=== PATIENT | male | born 1980 | race Two or more races ===

== ENCOUNTER 2020-11-04 13:55 | Inpatient (IN) | payer MEDICAID ==
[~2020-11-04] VITALS: Ht 172.7 cm; Wt 77.1 kg
[2020-11-04] MEDS ORDERED: Morphine Sulfate 4mg/ml Inj (IV USE ONLY) IVP ONE ×3 (14:00→20:30)
--- NOTE | 2020-11-04 14:00 | NUR ---
ED Nurse Note: patient from street and brought in by RA 813 due to right leg deformity and injury. Per EMS, patient was playing soccer and he fell and landed on his right leg. Pt is AOx4, appears to be restless, (+) facial grimace, cooperative to care, VSS, on RA, afebilr on triage.
--- NOTE | 2020-11-04 14:31 | Emergency Room Report ---
History of Present Illness General Chief Complaint: Lower Extremity Injury Present Illness HPI Disclaimer: Please note that this report is being documented using [employer] technology. This can lead to erroneous entry secondary to incorrect interpretation by the dictating instrument. HPI: 40-year-old male presents with right lower extremity pain. He was playing soccer in the street when he tripped and landed improperly on his foot, now complaining of right lower extremity pain that is about 10 out of 10 worse with movement. Obvious deformity noted by EMS. Patient presented in a splint. He denies any past medical history. He does admit to drinking alcohol today. Allergies: Coded Allergies: No Known Allergies (Unverified , 11/04/20) COVID-19 Screening Contact w/high risk pt: No Experienced COVID-19 symptoms?: No COVID-19 Testing performed RN GASTROENTEROLOGY: No Patient History Reviewed Nursing Documentation: PMH: Agreed; PSxH: Agreed Review of Systems All Other Systems: negative except mentioned in HPI Physical Exam Vital Signs Date Time Temp Pulse Resp B/P (MAP) Pulse Ox O2 Delivery O2 Flow Rate FiO2 11/04/20 13:47 98.2 94 16 161/84 (109) 98 Room Air Sp02 EP Interpretation: reviewed, normal General Appearance: well appearing, no apparent distress Head: normocephalic, atraumatic Eyes: bilateral eye PERRL, bilateral eye EOMI ENT: hearing grossly normal, moist mucus membranes Neck: full range of motion, supple Respiratory: lungs clear, normal breath sounds, no rhonchi, no respiratory distress, no retraction, no wheezing Cardiovascular #1: normal peripheral pulses, regular rate, rhythm, no murmur Gastrointestinal: non tender, soft, non-distended, no guarding Musculoskeletal: other - Right lower extremity deformity noted superior to the ankle, 2+ pulses sensation intact in the right foot, motor intact Neurologic: alert, oriented x3, no focal defects Skin: normal color, warm/dry Procedures Splinting Splinting : Consent: Verbal Hand-Made Type: plaster Splint: posterior long Pre-Proc Neuro Vasc Exam: normal Post-Proc Neuro Vasc Exam: normal Patient Tolerated: Well Complications: None Medical Decision Making Diagnostic Impression: Primary Impression: Closed fracture of right tibia and fibula Additional Impression: Alcohol intoxication ER Course MDM: Differential included fracture, dislocation, sprain to name a few Clinical ciaads-w-bgh demonstrated fracture of the right tibia and fibula. IV was inserted, pain control given. Preop laboratory studies were sent and COVID- 19 testing was negative. Case was discussed with orthopedics, Dr. Anne who will take patient to the OR tomorrow. She will be admitted to the medical floor under Dr. New. Patient splinted by me while in the ER. Labs - Laboratory Tests Test 11/04/20 14:19 White Blood Count 7.2 K/UL (4.8-10.8) Red Blood Count 3.83 M/UL (4.70-6.10) L Hemoglobin 12.3 G/DL (14.2-18.0) L Hematocrit 38.4 % (42.0-52.0) L Mean Corpuscular Volume 100 FL (80-99) H Mean Corpuscular Hemoglobin 32.2 PG (27.0-31.0) H Mean Corpuscular Hemoglobin Concent 32.1 G/DL (32.0-36.0) Red Cell Distribution Width 12.6 % (11.6-14.8) Platelet Count 332 K/UL (150-450) Mean Platelet Volume 5.4 FL (6.5-10.1) L Neutrophils (%) (Auto) 66.3 % (45.0-75.0) Lymphocytes (%) (Auto) 20.1 % (20.0-45.0) Monocytes (%) (Auto) 8.2 % (1.0-10.0) Eosinophils (%) (Auto) 4.4 % (0.0-3.0) H Basophils (%) (Auto) 1.0 % (0.0-2.0) Prothrombin Time 10.3 SEC (9.30-11.50) Prothrombin Time INR 0.9 (0.9-1.1) Activated Partial Thromboplast Time 23 SEC (23-33) Sodium Level 139 MMOL/L (136-145) Potassium Level 3.6 MMOL/L (3.5-5.1) Chloride Level 103 MMOL/L (98-107) Carbon Dioxide Level 24 MMOL/L (21-32) Anion Gap 12 mmol/L (5-15) Blood Urea Nitrogen 12 mg/dL (7-18) Creatinine 1.0 MG/DL (0.55-1.30) Estimated Glomerular Filtration Rate > 60 mL/min (>60) Glucose Level 96 MG/DL (74-106) Calcium Level 8.5 MG/DL (8.5-10.1) Total Bilirubin 0.2 MG/DL (0.2-1.0) Aspartate Amino Transferase (AST) 45 U/L (15-37) H Alanine Aminotransferase (ALT) 43 U/L (12-78) Alkaline Phosphatase 137 U/L (46-116) H Total Protein 6.9 G/DL (6.4-8.2) Albumin 3.4 G/DL (3.4-5.0) Globulin 3.5 g/dL Albumin/Globulin Ratio 1.0 (1.0-2.7) Serum Alcohol 184 mg/dL Microbiology Date/Time Source Procedure Growth Status 11/04/20 16:00 Nasopharynx SARS-CoV-2 RdRp Gene Assay - Final Complete On reevaluation: Pain controlled patient resting comfortably Plan-admission to the medical floor, orthopedics consultation Last Vital Signs Date Time Temp Pulse Resp B/P (MAP) Pulse Ox O2 Delivery O2 Flow Rate FiO2 11/04/20 13:47 98.2 94 16 161/84 (109) 98 Room Air Status: improved Disposition: ADMITTED INPATIENT Condition: Serious Elan Barrett M.D. Nov 04, 2020 14:31
[2020-11-04 14:42] LABS: EOSINOPHILS % (AUTO) 4.4 % (0.0-3.0); HEMATOCRIT 38.4 % (42.0-52.0); HEMOGLOBIN 12.3 G/DL (14.2-18.0); LYMPHOCYTES % (AUTO) 20.1 % (20.0-45.0); MEAN CORPUSCULAR VOLUME 100 FL (80-99); MONOCYTES % (AUTO) 8.2 % (1.0-10.0); NEUTROPHILS % (AUTO) 66.3 % (45.0-75.0); PLATELET COUNT 332 K/UL (150-450); RED BLOOD COUNT 3.83 M/UL (4.70-6.10); RED CELL DISTRIBUTION WIDTH 12.6 % (11.6-14.8); WHITE BLOOD COUNT 7.2 K/UL (4.8-10.8)
[2020-11-04 14:52] LABS: INR 0.9 (0.9-1.1)
[2020-11-04 14:59] LABS: ANION GAP 12 mmol/L (5-15); BLOOD UREA NITROGEN 12 mg/dL (7-18); CALCIUM 8.5 MG/DL (8.5-10.1); CARBON DIOXIDE 24 MMOL/L (21-32); CHLORIDE 103 MMOL/L (98-107); POTASSIUM 3.6 MMOL/L (3.5-5.1); SODIUM 139 MMOL/L (136-145)
[2020-11-04 15:04] LABS: ALANINE AMINOTRANSFERASE 43 U/L (12-78); ALBUMIN 3.4 G/DL (3.4-5.0); ALKALINE PHOSPHATASE 137 U/L (46-116); ASPARTATE AMINO TRANSFERASE 45 U/L (15-37); BILIRUBIN,TOTAL 0.2 MG/DL (0.2-1.0)
--- NOTE | 2020-11-04 16:00 | NUR ---
ED Nurse Note: R long posterior splint applied by TREVOR and RN.
--- NOTE | 2020-11-04 16:51 | Diagnostic Imaging Report ---
Indication: Right leg pain Technique: 2 views of the left tibia and fibula Comparison: none Findings: There is a spiral fracture of the distal tibial diaphysis. This is displaced laterally by one bone width, very slightly impacted. A few tiny intervening fracture fragments are demonstrated. There is also a spiral fracture of the proximal fibular diaphysis, likewise displaced by one bone width. Surgical hardware is seen in the distal femur Impression: Positive for tibial and fibular fractures, as described
--- NOTE | 2020-11-04 17:38 | History & Physical ---
History of Present Illness General Reason for Hospitalization: Lower Extremity Injury Present Illness HPI HPI: 40-year-old male presents with right lower extremity pain. He was playing soccer in the street when he tripped and landed improperly on his foot, now complaining of right lower extremity pain that is about 10 out of 10 worse with movement. Obvious deformity noted by EMS. Patient presented in a splint. He denies any past medical history. He does admit to drinking alcohol today. Allergies: Coded Allergies: No Known Allergies (Unverified , 11/04/20) COVID-19 Screening Contact w/high risk pt: No Experienced COVID-19 symptoms?: No Medication History No Active Prescriptions or Reported Meds Patient History Healthcare decision maker Resuscitation status Advanced Directive on File Review of Systems Review of Symptoms General ROS: no weight loss or fever Psychological ROS: no depression or mood changes, no memory loss Ophthalmic ROS: no visual changes or eye irritation ENT ROS: no nasal congestion, hearing loss, dizziness Allergy and Immunology ROS: no allergic symptoms or urticaria Hematological and Lymphatic ROS: no swollen glands, unusual bleeding or bruising Endocrine ROS: no polyuria, polydipsia, weight changes, temperature intolerance Respiratory ROS: no cough, shortness of breath, or wheezing Cardiovascular ROS: no chest pain or dyspnea on exertion Gastrointestinal ROS: denies abdominal pain, bright red blood in stool. Musculoskeletal ROS: LE pain Neurological ROS: no TIA or stroke symptoms Dermatological ROS: no new or changing skin lesions, rashes or pruritis Physical Exam Physical Exam General appearance: alert, cooperative, no distress, appears stated age Head: Normocephalic, without obvious abnormality, atraumatic Eyes: conjunctivae/corneas clear. PERRL, EOM's intact. Fundi benign Throat: Lips, mucosa, and tongue normal. Teeth and gums normal Neck: supple, symmetrical, trachea midline, no adenopathy, thyroid: not enlarged, symmetric, no tenderness/mass/nodules, no carotid bruit and no JVD Lungs: clear to auscultation bilaterally Heart: regular rate and rhythm, S1, S2 normal, no murmur, click, rub or gallop Abdomen: soft, non-tender. Bowel sounds normal. No masses, no organomegaly Pulses: 2+ and symmetric Skin: Skin color, texture, turgor normal. No rashes or lesions Neurologic: Grossly normal Last 24 Hour Vital Signs Date Time Temp Pulse Resp B/P (MAP) Pulse Ox O2 Delivery O2 Flow Rate FiO2 11/04/20 14:52 98.2 11/04/20 13:47 98.2 94 16 161/84 (109) 98 Room Air Laboratory Tests Test 11/04/20 14:19 White Blood Count 7.2 K/UL (4.8-10.8) Red Blood Count 3.83 M/UL (4.70-6.10) L Hemoglobin 12.3 G/DL (14.2-18.0) L Hematocrit 38.4 % (42.0-52.0) L Mean Corpuscular Volume 100 FL (80-99) H Mean Corpuscular Hemoglobin 32.2 PG (27.0-31.0) H Mean Corpuscular Hemoglobin Concent 32.1 G/DL (32.0-36.0) Red Cell Distribution Width 12.6 % (11.6-14.8) Platelet Count 332 K/UL (150-450) Mean Platelet Volume 5.4 FL (6.5-10.1) L Neutrophils (%) (Auto) 66.3 % (45.0-75.0) Lymphocytes (%) (Auto) 20.1 % (20.0-45.0) Monocytes (%) (Auto) 8.2 % (1.0-10.0) Eosinophils (%) (Auto) 4.4 % (0.0-3.0) H Basophils (%) (Auto) 1.0 % (0.0-2.0) Prothrombin Time 10.3 SEC (9.30-11.50) Prothromb Time International Ratio 0.9 (0.9-1.1) Activated Partial Thromboplast Time 23 SEC (23-33) Sodium Level 139 MMOL/L (136-145) Potassium Level 3.6 MMOL/L (3.5-5.1) Chloride Level 103 MMOL/L (98-107) Carbon Dioxide Level 24 MMOL/L (21-32) Anion Gap 12 mmol/L (5-15) Blood Urea Nitrogen 12 mg/dL (7-18) Creatinine 1.0 MG/DL (0.55-1.30) Estimat Glomerular Filtration Rate > 60 mL/min (>60) Glucose Level 96 MG/DL (74-106) Calcium Level 8.5 MG/DL (8.5-10.1) Total Bilirubin 0.2 MG/DL (0.2-1.0) Aspartate Amino Transf (AST/SGOT) 45 U/L (15-37) H Alanine Aminotransferase (ALT/SGPT) 43 U/L (12-78) Alkaline Phosphatase 137 U/L (46-116) H Total Protein 6.9 G/DL (6.4-8.2) Albumin 3.4 G/DL (3.4-5.0) Globulin 3.5 g/dL Albumin/Globulin Ratio 1.0 (1.0-2.7) Serum Alcohol 184 mg/dL Microbiology Date/Time Source Procedure Growth Status 11/04/20 16:00 Nasopharynx SARS-CoV-2 RdRp Gene Assay - Final Complete Height (Feet): 5 Height (Inches): 8.00 Weight (Pounds): 170 Assessment/Plan Diagnosis [place] I: #Right displaced spiral fracture of the distal tibia requiring surgery. - plan for surgerty - pain control - DVT ppx - PT [facility] Hospital declaration I spent 70 minutes on this patient's case, and 35 minutes was dedicated to counseling and/or care coordination. MIPS (Merit-based Incentive Payment System) Applicable CPT: 73796, 74779 CHECK ALL THAT ARE MET: Measure #5 (CHF): All ages. Prescribe JUDY/ARB upon discharge for patients with left ventricular systolic dysfunction. If not, the reason is clearly documented in the medical chart. Measure #8 (CHF): All ages. Prescribe a beta jamari upon discharge for patients with left ventricular systolic dysfunction. If not, the reason is clearly documented in the medical chart. Measure #47 Advance care plan or surrogate decision maker documented in the medical record. Measure #130 The provider has documented, updated, or reviewed the patients current medication list and has documented it in the patients note. Measure #374 (All): Send report to referring provider. Measure #407(Sepsis due to MSSA bacteremia): Age 18+ Patient treated with a beta-lactam antibiotic (Nafcillin, Oxacillin or Cefazolin) as definitive therapy. MEDICAL COMPLEXITY High complexity medical decision making (need 2/3 categories) Problem - need 4 points Acute/new problem with new plan for workup (4 points, 1 max) Acute/new problem without additional workup (3 points, 1 max) Unstable chronic problem actively being managed (2 point each, 2 max) Stable chronic problem actively being managed (1 point each, 2 max) Self-limited/transient process (constipation, muscle ache, etc) (1 point each, 2 max) Data - need 4 points Reviewed labs/imaging studies (1 points, 2 max) Independent review of imaging (EKG, xrays, etc) (2 points, 2 max) Discussed case with consult/other MD/RN (2 points, 2 max) High Risk - qualify if have one of the following: Severe exacerbation of acute problem, acute mental status change, IV narcotics, monitoring drug levels (vancomycin, INR, tacrolimus etc) Ran New M.D. Nov 04, 2020 17:38
--- NOTE | 2020-11-04 19:15 | NUR ---
ED Nurse Note: Recieved report from am nurse to resume care, pt in bed awake and alert, placed pt on monitoring for v/s, pt is swazi speaking but can make needs known and understands norwegian, pt c/o severe pain to right leg, leg is splinted , placed pillow and elevated extremity, cap refill less than 3 sec noted in toes, MD informed of pt pain, will re-medicate and continue to closely montior, pt is waiting for room for admission. pt has patent saline lock in left ac area.
[2020-11-04 19:20] VITALS: BP 109/58
--- NOTE | 2020-11-04 21:00 | NUR ---
ED Nurse Note: Pt continues to rest in bed, awake and alert, states pain meds slightly effective but pt is still moaning ansd groaning due to pain, MD informed and pt given another dose of pain meds, denies chestpain, no sob or labored breathingnoted, remains on cardiac monitoring, o2 sat=98%, pt saline lock intact and patent, will continue to monitor for med effectiveness and continuing to wait for room placement for admission.
[2020-11-04 21:45] VITALS: BP 113/71
--- NOTE | 2020-11-04 22:35 | NUR ---
ED Nurse Note: Meds given effective, pt sleeping, room is now available for admission, report called to floor nurse VanessaRN, pt belongings list completed and all belongings with him, pt being taken to floor unit via gurney with [facility], nad noted during pt transport to floor bed.
--- NOTE | 2020-11-04 22:54 | NUR ---
NURSE NOTES: Received report from GRICELDA Castro. Pt is stable in bed. NPO after midnight. Siderails up x2, call light within reach, bed locked and in lowest position. Will call doctor for admission orders.
[2020-11-04] MEDS ORDERED: traMADol 50mg tab ORAL PRN (23:45)
[2020-11-04] MEDS ORDERED: LORazepam 1mg tab ORAL PRN (23:45)
--- NOTE | 2020-11-04 23:50 | NUR ---
NURSE NOTES: Received admissions orders from . Entered and implemented the orders.
[2020-11-05] VITALS: BP 109/61
[2020-11-05] MEDS: D5NS 1,000 ML IV SCH ×2 (00:18→12:54)
[2020-11-05] MEDS: HYDROcodone/Acetamin 10/325 tab ORAL PRN ×3 (00:20→20:42)
[2020-11-05 04:00] VITALS: BP 118/72
[2020-11-05 06:13] LABS: BASOPHILS % (AUTO) 0.9 % (0.0-2.0); EOSINOPHILS % (AUTO) 1.5 % (0.0-3.0); HEMATOCRIT 35.5 % (42.0-52.0); HEMOGLOBIN 11.7 G/DL (14.2-18.0); LYMPHOCYTES % (AUTO) 20.2 % (20.0-45.0); MEAN CORPUSCULAR VOLUME 98 FL (80-99); NEUTROPHILS % (AUTO) 67.5 % (45.0-75.0); PLATELET COUNT 304 K/UL (150-450); RED BLOOD COUNT 3.63 M/UL (4.70-6.10); RED CELL DISTRIBUTION WIDTH 13.3 % (11.6-14.8); WHITE BLOOD COUNT 5.9 K/UL (4.8-10.8)
[2020-11-05 06:41] LABS: ALANINE AMINOTRANSFERASE 46 U/L (12-78); ALBUMIN 3.3 G/DL (3.4-5.0); ALBUMIN/GLOBULIN RATIO 0.9 (1.0-2.7); ALKALINE PHOSPHATASE 109 U/L (46-116); ANION GAP 5 mmol/L (5-15); ASPARTATE AMINO TRANSFERASE 41 U/L (15-37); BILIRUBIN,TOTAL 0.5 MG/DL (0.2-1.0); BLOOD UREA NITROGEN 9 mg/dL (7-18); CALCIUM 8.2 MG/DL (8.5-10.1); CARBON DIOXIDE 28 MMOL/L (21-32); CHLORIDE 103 MMOL/L (98-107); CREATININE 0.7 MG/DL (0.55-1.30); PHOSPHORUS 3.8 MG/DL (2.5-4.9); POTASSIUM 3.6 MMOL/L (3.5-5.1); SODIUM 136 MMOL/L (136-145)
--- NOTE | 2020-11-05 07:10 | NUR ---
NURSE HAND-OFF: Important Events on Shift: Pt's pain is controlled via PRN medication Patient Status: sleeping Diet: NPO Pending Orders: Pending Results/Labs: Pending MD notification: Latest Vital Signs: Temperature 98.2 , Pulse 70 , B/P 118 /72 , Respiratory Rate 18 , O2 SAT 98 , Room Air, O2 Flow Rate . Vital Sign Comment: VSS Latest Gomez Fall Score: 45 Fall Risk: High Risk Safety Measures: Call light Within Reach, Bed Alarm Zone 1, Side Rails Side Rails x2, Bed position Low and Locked. Fall Precautions: Yellow Socks Patient Fall Education Report given to GRICELDA Sprague.
--- NOTE | 2020-11-05 07:52 | Consultation ---
Consult Note Consult Note 40 yo male playing soccer yesterday with fall and right leg pain/deformity right displaced spiral tibial shaft fracture. hx rt femur fx 2019 NKDA Assessment/Plan Right spiral tibial shaft fx plan for ORIF tomorrow 12:30pm pain control med clearance pt can eat today. Pati Maldonado Nov 05, 2020 07:52
--- NOTE | 2020-11-05 07:55 | NUR ---
NURSE NOTES: RECIEVED PT. IN BED ASLEEP BUT AROUSABLE NO S/S DISTRESS NOTED @ THIS TIME .[place]LANDER SPEAKING W/ LIMITED ARABIC.CALL LIGHT WITHIN REACH.INSTRUCTED TO CALL FOR ANY ASSISTANCE,VERBALIZES UNDERSTANDING.WILL CONTINUE W/ PLAN OF CARE.
[2020-11-05 08:00] VITALS: BP 123/69
--- NOTE | 2020-11-05 10:59 | NUR ---
SWIMMING POOL SERVICEPERSON NOTE SW met w/ pt and completed the psychosocial assessment. Pt's primary language is Tamazight. PT was able to understand and answer all questions. Pt has been homeless for 2 years, preferred location in [facility] and [facility]. Pt is and has two minor children living w/ his in [place]. Pt does not have any family in [place] PT does not receive social welfare. 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 PT is a social ETOH drinker and smokes tobacco. PT's ETOH level was 184 prior to admission. PT denies other substance abuse. PT declined counseling/tx intervention on substance abuse. PT denies hx of mental illness. Pt is ambulatory w/o DME and independent w/ ADLs and IADLs. Pt may need a DME. SW will discuss possible placement options when pt is medically cleared.
[2020-11-05 12:00] VITALS: BP 124/72
--- NOTE | 2020-11-05 13:19 | Anethesia Preoperative Eval ---
Anesthesia Pre-op PMH/ROS General Date of Evaluation: Nov 05, 2020 Time of Evaluation: 13:16 Anesthesiologist: Phyllis ASA Score: ASA 2 Mallampati Score Class I : Soft palate, uvula, fauces, pillars visible Class II: Soft palate, uvula, fauces visible Class III: Soft palate, base of uvula visible Class IV: Only hard plate visible Mallampati Classification: Class II Surgeon: Omid Diagnosis: R tibial anf fibular Fx Surgical Procedure: ORIF Anesthesia History: none Family History: no anesthesia problems Allergies: Coded Allergies: No Known Allergies (Unverified , 11/04/20) Patient NPO?: Yes Past Medical History Cardiovascular: Denies: HTN, CAD, [place], valve dz, arrhythmia, other Pulmonary: Denies: asthma, COPD, CHERYL, other Gastrointestinal/Genitourinary: Reports: GERD Neurologic/Psychiatric: Denies: dementia, CVA, depression/anxiety, TIA, other Endocrine: Denies: DM, hypothyroidism, steroids, other HEENT: Denies: cataract (L), cataract (R), glaucoma, [place] (L), [place] (R), other Hematology/Immune: Denies: anemia, DVT, bleeding disorder, other Musculoskeletal/Integumentary: Denies: OA, RA, DJD, DDD, edema, other PMH Narrative: as above PSxH Narrative: see H&P Anesthesia Pre-op Phys. Exam Physician Exam Last Vital Signs Date Time Temp Pulse Resp B/P (MAP) Pulse Ox O2 Delivery O2 Flow Rate FiO2 11/05/20 12:00 99.1 75 18 124/72 (89) 98 11/05/20 09:00 Room Air Constitutional: NAD Neurologic: CN 2-12 intact Cardiovascular: RRR, no M/R/G Respiratory: CTA Gastrointestinal: S/NT/ND Airway Exam Mallampati Score: Class II MO: full Neck: flexible ROM: full Teeth: missing Dentures: no upper, no lower Anesthesia Pre-op A/P Labs Hematology Test 11/04/20 14:19 11/05/20 05:22 White Blood Count 7.2 K/UL (4.8-10.8) 5.9 K/UL (4.8-10.8) Red Blood Count 3.83 M/UL (4.70-6.10) L 3.63 M/UL (4.70-6.10) L Hemoglobin 12.3 G/DL (14.2-18.0) L 11.7 G/DL (14.2-18.0) L Hematocrit 38.4 % (42.0-52.0) L 35.5 % (42.0-52.0) L Mean Corpuscular Volume 100 FL (80-99) H 98 FL (80-99) Mean Corpuscular Hemoglobin 32.2 PG (27.0-31.0) H 32.4 PG (27.0-31.0) H Mean Corpuscular Hemoglobin Concent 32.1 G/DL (32.0-36.0) 33.1 G/DL (32.0-36.0) Red Cell Distribution Width 12.6 % (11.6-14.8) 13.3 % (11.6-14.8) Platelet Count 332 K/UL (150-450) 304 K/UL (150-450) Mean Platelet Volume 5.4 FL (6.5-10.1) L 5.2 FL (6.5-10.1) L Neutrophils (%) (Auto) 66.3 % (45.0-75.0) 67.5 % (45.0-75.0) Lymphocytes (%) (Auto) 20.1 % (20.0-45.0) 20.2 % (20.0-45.0) Monocytes (%) (Auto) 8.2 % (1.0-10.0) 10.0 % (1.0-10.0) Eosinophils (%) (Auto) 4.4 % (0.0-3.0) H 1.5 % (0.0-3.0) Basophils (%) (Auto) 1.0 % (0.0-2.0) 0.9 % (0.0-2.0) Coagulation Test 11/04/20 14:19 Prothrombin Time 10.3 SEC (9.30-11.50) Prothromb Time International Ratio 0.9 (0.9-1.1) Activated Partial Thromboplast Time 23 SEC (23-33) Chemistry Test 11/04/20 14:19 11/05/20 05:22 Sodium Level 139 MMOL/L (136-145) 136 MMOL/L (136-145) Potassium Level 3.6 MMOL/L (3.5-5.1) 3.6 MMOL/L (3.5-5.1) Chloride Level 103 MMOL/L (98-107) 103 MMOL/L (98-107) Carbon Dioxide Level 24 MMOL/L (21-32) 28 MMOL/L (21-32) Anion Gap 12 mmol/L (5-15) 5 mmol/L (5-15) Blood Urea Nitrogen 12 mg/dL (7-18) 9 mg/dL (7-18) Creatinine 1.0 MG/DL (0.55-1.30) 0.7 MG/DL (0.55-1.30) Estimat Glomerular Filtration Rate > 60 mL/min (>60) > 60 mL/min (>60) Glucose Level 96 MG/DL (74-106) 108 MG/DL (74-106) H Calcium Level 8.5 MG/DL (8.5-10.1) 8.2 MG/DL (8.5-10.1) L Total Bilirubin 0.2 MG/DL (0.2-1.0) 0.5 MG/DL (0.2-1.0) Aspartate Amino Transf (AST/SGOT) 45 U/L (15-37) H 41 U/L (15-37) H Alanine Aminotransferase (ALT/SGPT) 43 U/L (12-78) 46 U/L (12-78) Alkaline Phosphatase 137 U/L (46-116) H 109 U/L (46-116) Total Protein 6.9 G/DL (6.4-8.2) 6.8 G/DL (6.4-8.2) Albumin 3.4 G/DL (3.4-5.0) 3.3 G/DL (3.4-5.0) L Globulin 3.5 g/dL 3.5 g/dL Albumin/Globulin Ratio 1.0 (1.0-2.7) 0.9 (1.0-2.7) L Phosphorus Level 3.8 MG/DL (2.5-4.9) Magnesium Level 1.9 MG/DL (1.8-2.4) Risk Assessment & Plan Assessment: ASA 2 Plan: SAB vs GA with femoral nerve block Status Change Before Surgery: No Pre-Antibiotics Drug: as scheduled John Ferguson MD Nov 05, 2020 13:19
--- NOTE | 2020-11-05 14:15 | Consultation ---
DATE OF CONSULTATION: 11/05/2020 ORTHOPEDIC CONSULTATION CONSULTING PHYSICIAN: Edvin Anne MD. HISTORY OF PRESENT ILLNESS: The patient is a pleasant 40-year-old gentleman who is Ugandan-speaking and was seen at bedside with the nurse for interpretation. He was playing soccer yesterday. He fell, had immediate right-sided leg pain and deformity, and was transferred to [facility] ER. X-rays in the ER noted a displaced distal tibial fracture and a splint was applied, and Orthopedic consult was called. The patient has a history of right-sided femur fracture two years ago for which he was stabilized with long nail. PAST MEDICAL HISTORY: None. PAST SURGICAL HISTORY: Right femur ORIF, 2019. CURRENT MEDICATIONS: Please see chart. ALLERGIES: None. SOCIAL HISTORY: He is an independent gentleman. He comes from home. He drinks socially. He ambulates without issue at baseline. PHYSICAL EXAMINATION: GENERAL: He is a pleasant gentleman. He is cooperative with examination. MUSCULOSKELETAL: His right lower extremity is in a splint. He can wiggle his toes. He has intact sensation of the digits. He has a healed scar on the femur from his prior surgery. There is no major knee pain. X-RAY AND MRI: X-ray of the tib-fib are reviewed. There is a spiral distal tibial fracture, which is displaced laterally. Femur hardware can be seen and there is also a spiral fracture of the proximal fibula, which does not seem to be displaced. IMPRESSION: Right displaced spiral fracture of the distal tibia requiring surgery. DISCUSSION: At this time, I discussed with the patient my findings. He wants to move forward with surgery. He is in agreement with that and he wants to get that done. He also has a small fibular fracture, although this will not require hardware fixation. Plan surgery tomorrow and have him cleared medically today. He is in agreement. Risk of surgery including nerve injury, vessel injury, infection and bleeding, risk for fracture, hardware failure, need for revision surgery down the line as well as painful hardware down the line, was all discussed. He understands. He has undergone surgery similar to this before and he knows what is involved with it. We will get him set up and proceed with surgery tomorrow. Edvin Anne M.D. Bonita Allen DR: BELIA JOB#: [id number] CC: CLARK
--- NOTE | 2020-11-05 15:03 | NUR ---
GuidemanOphthalmic Medical Assistant 40 y/o male transported from street via ambulance CC: Rt lower extermity pain and deformity 08/08 pain SI: Closed, spiral Fx of Rt Tibia and Fibula T-98.2, HR 94, RR 16, BP 161/84 O2 sat 98% Serum Alcohol 184 IS: Morphine IVP X2 RLE X-ray admit to Med/Surg Med/Surg Status DCP: pending surgery and hospitalization
[2020-11-05 16:00] VITALS: BP 115/74
[2020-11-05] MEDS ORDERED: D5 1/2NS 1000ml IV ONE (16:48)
--- NOTE | 2020-11-05 18:30 | Consultation ---
History of Present Illness General Date patient seen: Nov 05, 2020 Reason for Hospitalization: Lower Extremity Injury Present Illness HPI 40-year-old male who is otherwise healthy presented to [facility] [place] with right lower extremity pain. States he was playing soccer in the street when he tripped and landed improperly on his foot, now complaining of right lower extremity pain that is about 10 out of 10 worse with movement. Obvious deformity noted by EMS. Patient presented in a splint. He denies any past medical history. He does admit to drinking alcohol day of injury. fall noted. surgery called to evaluate for trauma. ORtho called as fx noted. Allergies: Coded Allergies: No Known Allergies (Unverified , 11/04/20) COVID-19 Screening Contact w/high risk pt: No Experienced COVID-19 symptoms?: No Medication History No Active Prescriptions or Reported Meds Patient History History Provided By: Patient, Medical Record, PMD Healthcare decision maker Resuscitation status Advanced Directive on File Past Medical/Surgical History Past Medical/Surgical History: (1) Alcohol intoxication (2) Closed fracture of right tibia and fibula Review of Systems Review of Symptoms General ROS: no weight loss or fever Psychological ROS: no depression or mood changes, no memory loss Ophthalmic ROS: no visual changes or eye irritation ENT ROS: no nasal congestion, hearing loss, dizziness Allergy and Immunology ROS: no allergic symptoms or urticaria Hematological and Lymphatic ROS: no swollen glands, unusual bleeding or bruising Endocrine ROS: no polyuria, polydipsia, weight changes, temperature intolerance Respiratory ROS: no cough, shortness of breath, or wheezing Cardiovascular ROS: no chest pain or dyspnea on exertion Gastrointestinal ROS: denies abdominal pain, bright red blood in stool. Musculoskeletal ROS: no myalgias or arthralgias+++pain Neurological ROS: no TIA or stroke symptoms Dermatological ROS: no new or changing skin lesions, rashes or pruritis Physical Exam Physical Exam General appearance: alert, cooperative, no distress, appears stated age Head: Normocephalic, without obvious abnormality, atraumatic Eyes: conjunctivae/corneas clear. PERRL, EOM's intact. Fundi benign Throat: Lips, mucosa, and tongue normal. Teeth and gums normal Neck: supple, symmetrical, trachea midline, no adenopathy, thyroid: not enlarged, symmetric, no tenderness/mass/nodules, no carotid bruit and no JVD Lungs: clear to auscultation bilaterally Heart: regular rate and rhythm, S1, S2 normal, no murmur, click, rub or gallop Abdomen: soft, non-tender. Bowel sounds normal. No masses, no organomegaly Extremities: extremities see below Pulses: 2+ and symmetric Skin: Skin color, texture, turgor normal. No rashes or lesions Neurologic: Grossly normal Last 24 Hour Vital Signs Date Time Temp Pulse Resp B/P (MAP) Pulse Ox O2 Delivery O2 Flow Rate FiO2 11/05/20 16:00 97.7 66 18 115/74 (88) 99 11/05/20 12:00 99.1 75 18 124/72 (89) 98 11/05/20 09:00 Room Air 11/05/20 08:00 98.5 67 18 123/69 (87) 98 11/05/20 04:00 98.2 70 18 118/72 (87) 98 11/05/20 00:44 Room Air 11/05/20 00:00 97.9 67 18 109/61 (77) 98 11/04/20 22:55 98.4 73 16 113/71 99 Room Air 11/04/20 21:45 98.4 73 16 113/71 99 Room Air 11/04/20 21:00 98.4 11/04/20 20:00 98.4 11/04/20 19:20 98.4 73 20 109/58 97 Room Air Intake and Output 11/04/20 11/05/20 19:00 07:00 Intake Total 200 ml Output Total 0 ml Balance 200 ml Intake Oral 200 ml Output Urine Total 0 ml Laboratory Tests Test 11/05/20 05:22 White Blood Count 5.9 K/UL (4.8-10.8) Red Blood Count 3.63 M/UL (4.70-6.10) L Hemoglobin 11.7 G/DL (14.2-18.0) L Hematocrit 35.5 % (42.0-52.0) L Mean Corpuscular Volume 98 FL (80-99) Mean Corpuscular Hemoglobin 32.4 PG (27.0-31.0) H Mean Corpuscular Hemoglobin Concent 33.1 G/DL (32.0-36.0) Red Cell Distribution Width 13.3 % (11.6-14.8) Platelet Count 304 K/UL (150-450) Mean Platelet Volume 5.2 FL (6.5-10.1) L Neutrophils (%) (Auto) 67.5 % (45.0-75.0) Lymphocytes (%) (Auto) 20.2 % (20.0-45.0) Monocytes (%) (Auto) 10.0 % (1.0-10.0) Eosinophils (%) (Auto) 1.5 % (0.0-3.0) Basophils (%) (Auto) 0.9 % (0.0-2.0) Sodium Level 136 MMOL/L (136-145) Potassium Level 3.6 MMOL/L (3.5-5.1) Chloride Level 103 MMOL/L (98-107) Carbon Dioxide Level 28 MMOL/L (21-32) Anion Gap 5 mmol/L (5-15) Blood Urea Nitrogen 9 mg/dL (7-18) Creatinine 0.7 MG/DL (0.55-1.30) Estimat Glomerular Filtration Rate > 60 mL/min (>60) Glucose Level 108 MG/DL (74-106) H Calcium Level 8.2 MG/DL (8.5-10.1) L Phosphorus Level 3.8 MG/DL (2.5-4.9) Magnesium Level 1.9 MG/DL (1.8-2.4) Total Bilirubin 0.5 MG/DL (0.2-1.0) Aspartate Amino Transf (AST/SGOT) 41 U/L (15-37) H Alanine Aminotransferase (ALT/SGPT) 46 U/L (12-78) Alkaline Phosphatase 109 U/L (46-116) Total Protein 6.8 G/DL (6.4-8.2) Albumin 3.3 G/DL (3.4-5.0) L Globulin 3.5 g/dL Albumin/Globulin Ratio 0.9 (1.0-2.7) L Height (Feet): 5 Height (Inches): 8.00 Weight (Pounds): 170 Medications Current Medications Medications (Trade) Dose Ordered Sig/Chris Route PRN Reason Start Time Stop Time Status Last Admin Dose Admin Acetaminophen (Tylenol) 650 mg Q6H PRN ORAL Mild Pain (Pain Scale 1-3) 11/04/20 23:45 12/04/20 23:44 Acetaminophen/ Hydrocodone Bitart ([place] 10/325) 1 tab Q6H PRN ORAL Severe Pain (Pain Scale 7-10) 11/04/20 23:45 11/11/20 23:44 11/05/20 11:41 Dextrose/Sodium Chloride 1,000 ml @ 75 mls/hr [id number] IV 11/04/20 23:45 12/04/20 23:44 11/05/20 12:54 Lorazepam (Ativan) 1 mg Q2H PRN ORAL Agitation 11/04/20 23:45 11/11/20 23:44 Tramadol HCl (Ultram) 50 mg Q6H PRN ORAL Moderate Pain (Pain Scale 4-6) 11/04/20 23:45 11/11/20 23:44 11/05/20 05:36 Assessment/Plan Problem List: (1) Alcohol intoxication ICD Codes: F10.929 - Alcohol use, unspecified with intoxication, unspecified SNOMED: [id number] (2) Closed fracture of right tibia and fibula Assessment & Plan: Closed fx noted no LOC etoh + ortho input noted OR today see operative note will need pt/ot post op pain control no head injury no other trauma isolated ortho thank you There is a spiral fracture of the distal tibial diaphysis. This is displaced laterally by one bone width, very slightly impacted. A few tiny intervening fracture fragments are demonstrated. There is also a spiral fracture of the proximal fibular diaphysis, likewise displaced by one bone width. Surgical hardware is seen in the distal femur ICD Codes: S82.201A - Unspecified fracture of shaft of right tibia, initial encounter for closed fracture; S82.401A - Unspecified fracture of shaft of right fibula, initial encounter for closed fracture SNOMED: [id number], [id number] Wesley Teixeira Nov 05, 2020 18:30
--- NOTE | 2020-11-05 19:11 | NUR ---
HAND-OFF: Report given to LANIE MADISON
--- NOTE | 2020-11-05 19:32 | NUR ---
NURSE NOTES: patient alert and oriented no pain or discomfort at this time. will be npo after midnight tonight for surgery in am. right leg with long leg splint noted, skin warm and dry touch, able to wiggle toes although some swelling observed.
[2020-11-05 19:54] VITALS: BP 120/71
[2020-11-06] VITALS (13 sets, daily range): BP systolic 108–127; BP diastolic 64–89
[2020-11-06] MEDS: D5NS 1,000 ML IV SCH (02:38)
[2020-11-06 05:47] LABS: BASOPHILS % (AUTO) 1.2 % (0.0-2.0); EOSINOPHILS % (AUTO) 5.6 % (0.0-3.0); HEMATOCRIT 34.8 % (42.0-52.0); HEMOGLOBIN 11.8 G/DL (14.2-18.0); LYMPHOCYTES % (AUTO) 16.6 % (20.0-45.0); MEAN CORPUSCULAR VOLUME 97 FL (80-99); MONOCYTES % (AUTO) 7.1 % (1.0-10.0); NEUTROPHILS % (AUTO) 69.6 % (45.0-75.0); PLATELET COUNT 283 K/UL (150-450); RED BLOOD COUNT 3.58 M/UL (4.70-6.10); RED CELL DISTRIBUTION WIDTH 13.9 % (11.6-14.8); WHITE BLOOD COUNT 6.7 K/UL (4.8-10.8)
[2020-11-06 06:26] LABS: ALANINE AMINOTRANSFERASE 40 U/L (12-78); ALBUMIN/GLOBULIN RATIO 0.8 (1.0-2.7); ALKALINE PHOSPHATASE 105 U/L (46-116); ANION GAP 3 mmol/L (5-15); ASPARTATE AMINO TRANSFERASE 41 U/L (15-37); BILIRUBIN,TOTAL 0.4 MG/DL (0.2-1.0); BLOOD UREA NITROGEN 8 mg/dL (7-18); CALCIUM 8.3 MG/DL (8.5-10.1); CARBON DIOXIDE 31 MMOL/L (21-32); CHLORIDE 102 MMOL/L (98-107); CREATININE 0.7 MG/DL (0.55-1.30); PHOSPHORUS 3.5 MG/DL (2.5-4.9); POTASSIUM 3.5 MMOL/L (3.5-5.1); SODIUM 136 MMOL/L (136-145)
--- NOTE | 2020-11-06 06:49 | NUR ---
NURSE HAND-OFF: Important Events on Shift:[] kept npo for surgery today, no acute distress thru the night. Patient Status: [] stable Diet: [] npo Pending Orders: [] none Pending Results/Labs:[] cbc, cmp, mg, po4 Pending MD notification:[] Latest Vital Signs: Temperature 98.2 , Pulse 79 , B/P 125 /71 , Respiratory Rate 18 , O2 SAT 98 , Room Air, O2 Flow Rate . Vital Sign Comment: [] Latest Gomez Fall Score: 60 Fall Risk: High Risk Safety Measures: Call light Within Reach, Bed Alarm Zone 1, Side Rails Side Rails x2, Bed position Low and Locked. Fall Precautions: Yellow Socks Yellow Gown Report given to []. Addendum: 11/06/20 at 0711 by Vanessa Hatch RN report given to carmenza dixon
--- NOTE | 2020-11-06 07:00 | NUR ---
NURSE NOTES:WALKING ROUNDS DONE WITH NIGHT RN(LANIE),PT.STABLE.AOX4,NPO FOR SURGERY,CONSENTED.
--- NOTE | 2020-11-06 11:17 | Surgery Progress Note ---
Surgery Progress Note Subjective Symptoms: pain decreased Additional Comments Patient seen and examined bedside. No acute events. Resting comfortably. Labs reviewed micro reviewed imaging reviewed. Afebrile hemodynamically stable at this time Ortho today Objective Last 24 Hour Vital Signs Date Time Temp Pulse Resp B/P (MAP) Pulse Ox O2 Delivery O2 Flow Rate FiO2 11/06/20 08:00 98.3 72 18 112/81 (91) 98 11/06/20 07:23 Room Air 11/06/20 04:00 98.2 79 18 125/71 (89) 98 11/05/20 21:12 99.0 11/05/20 19:57 Room Air 11/05/20 19:54 99.0 99 20 120/71 (87) 97 11/05/20 16:00 97.7 66 18 115/74 (88) 99 11/05/20 12:00 99.1 75 18 124/72 (89) 98 I&O Intake and Output 11/05/20 11/06/20 19:00 07:00 Intake Total 1800 ml 1200 ml Output Total 700 ml 1400 ml Balance 1100 ml -200 ml Intake Oral 900 ml 1200 ml IV Total 900 ml Output Urine Total 700 ml 1400 ml Dressing: dry Cardiovascular: RSR Respiratory: decreased breath sounds Abdomen: soft, non-tender, present bowel sounds, non-distended Extremities: edema, tenderness, no cyanosis, pulses, other Laboratory Tests Test 11/06/20 05:20 White Blood Count 6.7 K/UL (4.8-10.8) Red Blood Count 3.58 M/UL (4.70-6.10) L Hemoglobin 11.8 G/DL (14.2-18.0) L Hematocrit 34.8 % (42.0-52.0) L Mean Corpuscular Volume 97 FL (80-99) Mean Corpuscular Hemoglobin 33.1 PG (27.0-31.0) H Mean Corpuscular Hemoglobin Concent 34.0 G/DL (32.0-36.0) Red Cell Distribution Width 13.9 % (11.6-14.8) Platelet Count 283 K/UL (150-450) Mean Platelet Volume 5.5 FL (6.5-10.1) L Neutrophils (%) (Auto) 69.6 % (45.0-75.0) Lymphocytes (%) (Auto) 16.6 % (20.0-45.0) L Monocytes (%) (Auto) 7.1 % (1.0-10.0) Eosinophils (%) (Auto) 5.6 % (0.0-3.0) H Basophils (%) (Auto) 1.2 % (0.0-2.0) Sodium Level 136 MMOL/L (136-145) Potassium Level 3.5 MMOL/L (3.5-5.1) Chloride Level 102 MMOL/L (98-107) Carbon Dioxide Level 31 MMOL/L (21-32) Anion Gap 3 mmol/L (5-15) L Blood Urea Nitrogen 8 mg/dL (7-18) Creatinine 0.7 MG/DL (0.55-1.30) Estimat Glomerular Filtration Rate > 60 mL/min (>60) Glucose Level 104 MG/DL (74-106) Calcium Level 8.3 MG/DL (8.5-10.1) L Phosphorus Level 3.5 MG/DL (2.5-4.9) Magnesium Level 1.7 MG/DL (1.8-2.4) L Total Bilirubin 0.4 MG/DL (0.2-1.0) Aspartate Amino Transf (AST/SGOT) 41 U/L (15-37) H Alanine Aminotransferase (ALT/SGPT) 40 U/L (12-78) Alkaline Phosphatase 105 U/L (46-116) Total Protein 6.6 G/DL (6.4-8.2) Albumin 3.0 G/DL (3.4-5.0) L Globulin 3.6 g/dL Albumin/Globulin Ratio 0.8 (1.0-2.7) L Plan Problems: (1) Alcohol intoxication (2) Closed fracture of right tibia and fibula Assessment & Plan: Closed fx noted no LOC etoh + ortho input noted OR today see operative note will need pt/ot post op pain control no head injury no other trauma isolated ortho thank you There is a spiral fracture of the distal tibial diaphysis. This is displaced laterally by one bone width, very slightly impacted. A few tiny intervening fracture fragments are demonstrated. There is also a spiral fracture of the proximal fibular diaphysis, likewise displaced by one bone width. Surgical hardware is seen in the distal femur Wesley Teixeira Nov 06, 2020 11:17
[2020-11-06] MEDS ORDERED: fentaNYL 100 mcg/2 mL IV ONE (11:34)
[2020-11-06] MEDS ORDERED: Midazolam 2mg/2ml Inj ONE (11:34)
[2020-11-06] MEDS ORDERED: Ropivacaine 5mg/ml Vial 30ml INJ ONE (11:35)
[2020-11-06] MEDS ORDERED: Lidocaine 1% MPF 10mg/ml 5ml ONE ×2 (11:35→11:37)
--- NOTE | 2020-11-06 11:50 | NUR ---
NURSE NOTES:HAND OFF DONE WITH KAYE(SURGERY TRANSPORTER),PT.STABLE ON ASSEMBLER TRIM.
[2020-11-06] MEDS ORDERED: Hydrogen Peroxide 473ml Bottle TOPIC ONE (11:52)
[2020-11-06] MEDS ORDERED: Bacitracin 50000 Units Vial ONE (11:52)
[2020-11-06] MEDS ORDERED: NeoSporin Gu Irrig 1ml Amp IRRIG ONE (11:53)
--- NOTE | 2020-11-06 11:53 | Pre-Procedure Note/Attestation ---
Pre-Procedure Note/Attestation Complete Prior to Procedure Planned Procedure: right Procedure Narrative: Right tibial ORIF Indications for Procedure Pre-Operative Diagnosis: Right tibial fx Attestation I attest that I discussed the nature of the procedure; its benefits; risks and complications; and alternatives (and the risks and benefits of such alternatives), prior to the procedure, with the patient (or the patient's legal entry level marketing representative). I attest that, if there was a reasonable possibility of needing a blood transfusion, the patient (or the patient's legal entry level marketing representative) was given the [facility] standardized written summary, pursuant to the Patrice Saba Blood Safety Act ([place] Health and Safety Code # 1645, as amended). I attest that I re-evaluated the patient just prior to the surgery and that there has been no change in the patient's H&P, except as documented below:NONE Edvin Anne MD Nov 06, 2020 11:53
[2020-11-06] MEDS ORDERED: Hydromorphone 0.5mg/0.5ml inj SUBQ PRN (12:00)
[2020-11-06] MEDS ORDERED: HYDROmorphone 1mg/ml Carpuject SUBQ PRN (12:00)
[2020-11-06] MEDS ORDERED: HYDROcodone/Acetamin 5/325 tab ORAL PRN (12:00)
[2020-11-06] MEDS ORDERED: NS Irrig 1000ml IRRIG ONE (13:12)
[2020-11-06] MEDS ORDERED: Meperidine 25mg/1ml Inj (FOR RIGORS ONLY) IV PRN (13:15)
[2020-11-06] MEDS ORDERED: LR 1000ml 1,000 ML IVLG SCH (13:15)
[2020-11-06] MEDS ORDERED: DiphenhydrAMINE 50mg/ml Inj IVP PRN (13:15)
[2020-11-06] MEDS ORDERED: Midazolam 2mg/2ml Inj IVP PRN (13:15)
[2020-11-06] MEDS ORDERED: Ketorolac 30mg Inj ONE (13:21)
--- NOTE | 2020-11-06 14:34 | Brief Operative Note ---
Immediate Post Operative Note Operative Note Chief Complaint: rt tibial fx Pre-op Diagnosis: right tibial fx Procedure: right tibial ORIF Post-op Diagnosis: same as pre-op Findings: consistent w/pre-op dx studies Surgeon: md ravindra Lithographing Machine Operator: giuseppe valero Anesthesiologist: md jac Anesthesia: general Specimen: none Complications: none Condition: stable Fluids: ns Estimated Blood Loss: minimal Drains: none Implant(s) used?: Yes - Pati Hernadez Nov 06, 2020 14:34
--- NOTE | 2020-11-06 14:39 | Immediate Post-Op Evaluation ---
Immediate Post-Op Evalulation Immediate Post-Op Evalulation Procedure: ORIF of R tibial Fx, intramedullary nail Date of Evaluation: Nov 06, 2020 Time of Evaluation: 14:38 IV Fluids: 1400 Blood Products: none Estimated Blood Loss: 100 Urinary Output: none Blood Pressure Systolic: 132 Blood Pressure Diastolic: 76 Pulse Rate: 86 Respiratory Rate: 22 O2 Sat by Pulse Oximetry: 99 Temperature (Fahrenheit): 98.2 Pain Score (1-10): 2 Nausea: No Vomiting: No Complications none Patient Status: reacts, patent, none Hydration Status: adequate John Ferguson MD Nov 06, 2020 14:39
--- NOTE | 2020-11-06 15:15 | NUR ---
Consumer Relations SpecialistSpecial Events Manager SI: Closed, spiral Fx of Rt Tibia and Fibula T-98.3, HR 94, RR 18, BP 126/89 O2 sat 100% O2 simple mask 6L IS: Oxycontin PO q 12 h D5/NS IV 75cc/hr Cefazolin IV 55ml/hr ORIF RT Tib/Fib Med/Surg Status
--- NOTE | 2020-11-06 15:25 | Internal Med Progress Note ---
Subjective Physician Name Ran New Attending Physician Ran New M.D. Current Medications Medications (Trade) Dose Ordered Sig/Chris Route PRN Reason Start Time Stop Time Status Last Admin Dose Admin Acetaminophen (Tylenol) 650 mg Q6H PRN ORAL Mild Pain (Pain Scale 1-3) 11/04/20 23:45 12/04/20 23:44 Acetaminophen (Tylenol) 650 mg Q6H PRN ORAL fever 11/06/20 12:00 12/06/20 11:59 Acetaminophen/ Hydrocodone Bitart ([place] 5/325) 1 tab Q4H PRN ORAL For Pain 11/06/20 12:00 11/13/20 11:59 Aspirin (ASA) 325 mg BID ORAL 11/07/20 09:00 12/22/20 08:59 Cefazolin Sodium 1 gm/Dextrose 55 ml @ 110 mls/hr Q8H IV 11/06/20 21:00 11/07/20 13:29 Celecoxib (CeleBREX) 200 mg DAILY ORAL 11/07/20 09:00 02/05/21 08:59 Dextrose/Sodium Chloride 1,000 ml @ 75 mls/hr Q13H IV 11/06/20 12:00 12/06/20 11:59 Diphenhydramine HCl (Benadryl) 25 mg Q15M PRN IVP Itching 11/06/20 13:15 11/06/20 20:00 Docusate Sodium (Colace) 100 mg THREE TIMES A DAY ORAL 11/06/20 18:00 12/06/20 17:59 Hydromorphone HCl (Dilaudid) 0.5 mg Q4H PRN SUBQ Mild Pain (Pain Scale 1-3) 11/06/20 12:00 11/13/20 11:59 Hydromorphone HCl (Dilaudid) 1 mg Q3H PRN SUBQ Moderate Pain (Pain Scale 4-6) 11/06/20 12:00 11/13/20 11:59 Lactated Ringer's 1,000 ml @ 10 mls/hr Q24H IVLG 11/06/20 13:15 11/06/20 20:00 Lorazepam (Ativan) 1 mg Q2H PRN ORAL Agitation 11/04/20 23:45 11/11/20 23:44 Meperidine HCl (Demerol) 25 mg Q15M PRN IV Shivering 11/06/20 13:15 11/06/20 20:00 Midazolam HCl (Versed 2mg/2ml vial) 1 mg Q15M PRN IVP For Anxiety 11/06/20 13:15 11/06/20 20:00 Ondansetron HCl (Zofran) 4 mg Q1H PRN IVP Nausea & Vomiting 11/06/20 13:15 11/06/20 20:00 Ondansetron HCl (Zofran) 4 mg Q6H PRN IVP Nausea & Vomiting 11/06/20 12:00 12/06/20 11:59 Oxycodone HCl (OxyCONTIN) 10 mg EVERY 12 HOURS ORAL 11/06/20 21:00 11/13/20 20:59 Pantoprazole (Protonix) 40 mg EVERY 12 HOURS ORAL 11/06/20 21:00 12/06/20 20:59 Allergies: Coded Allergies: No Known Allergies (Unverified , 11/04/20) Objective Last Vital Signs Date Time Temp Pulse Resp B/P (MAP) Pulse Ox O2 Delivery O2 Flow Rate FiO2 11/06/20 15:15 87 16 112/85 100 Nasal Cannula 3 11/06/20 14:30 98.3 Laboratory Tests Test 11/06/20 05:20 White Blood Count 6.7 K/UL (4.8-10.8) Red Blood Count 3.58 M/UL (4.70-6.10) L Hemoglobin 11.8 G/DL (14.2-18.0) L Hematocrit 34.8 % (42.0-52.0) L Mean Corpuscular Volume 97 FL (80-99) Mean Corpuscular Hemoglobin 33.1 PG (27.0-31.0) H Mean Corpuscular Hemoglobin Concent 34.0 G/DL (32.0-36.0) Red Cell Distribution Width 13.9 % (11.6-14.8) Platelet Count 283 K/UL (150-450) Mean Platelet Volume 5.5 FL (6.5-10.1) L Neutrophils (%) (Auto) 69.6 % (45.0-75.0) Lymphocytes (%) (Auto) 16.6 % (20.0-45.0) L Monocytes (%) (Auto) 7.1 % (1.0-10.0) Eosinophils (%) (Auto) 5.6 % (0.0-3.0) H Basophils (%) (Auto) 1.2 % (0.0-2.0) Sodium Level 136 MMOL/L (136-145) Potassium Level 3.5 MMOL/L (3.5-5.1) Chloride Level 102 MMOL/L (98-107) Carbon Dioxide Level 31 MMOL/L (21-32) Anion Gap 3 mmol/L (5-15) L Blood Urea Nitrogen 8 mg/dL (7-18) Creatinine 0.7 MG/DL (0.55-1.30) Estimat Glomerular Filtration Rate > 60 mL/min (>60) Glucose Level 104 MG/DL (74-106) Calcium Level 8.3 MG/DL (8.5-10.1) L Phosphorus Level 3.5 MG/DL (2.5-4.9) Magnesium Level 1.7 MG/DL (1.8-2.4) L Total Bilirubin 0.4 MG/DL (0.2-1.0) Aspartate Amino Transf (AST/SGOT) 41 U/L (15-37) H Alanine Aminotransferase (ALT/SGPT) 40 U/L (12-78) Alkaline Phosphatase 105 U/L (46-116) Total Protein 6.6 G/DL (6.4-8.2) Albumin 3.0 G/DL (3.4-5.0) L Globulin 3.6 g/dL Albumin/Globulin Ratio 0.8 (1.0-2.7) L Microbiology Date/Time Source Procedure Growth Status 11/04/20 16:00 Nasopharynx SARS-CoV-2 RdRp Gene Assay - Final Complete Intake and Output 11/05/20 11/06/20 19:00 07:00 Intake Total 1800 ml 1200 ml Output Total 700 ml 1400 ml Balance 1100 ml -200 ml Intake Oral 900 ml 1200 ml IV Total 900 ml Output Urine Total 700 ml 1400 ml Assessment/Plan Assessment/Plan #Right displaced spiral fracture of the distal tibia requiring surgery. - s/p surgery - pain control - DVT ppx - PT Ran New M.D. Nov 06, 2020 15:25
--- NOTE | 2020-11-06 15:45 | NUR ---
NURSE NOTES:RECEIVED FR. PACU S/P RIGHT TIBIAL ORIF WITH INTRA MEDULLARY LAURENT,UNDER GENERAL/FEMORAL BLOCK ANESTHESIA,PT.STABLE ON ARRIVAL,CAN WIGGLE RIGHT ROES,WITH SENSATION ON LEFT UPPER THIGH,DERSNG.C/D./I.3 ICE PACKS ON,ELEVATED ON 2 PILLOWS,NO C/O PAIN.WILL CONTINUE PLAN OF CARE.
--- NOTE | 2020-11-06 16:16 | Diagnostic Imaging Report ---
Indication: Postoperative, pain, fracture Technique: 2 views of the left tibia and fibula Comparison: 11/04/2020 Findings: Interim surgical repair of previously demonstrated distal tibial fracture with medullary consuelo, good anatomic alignment. Proximal fibular fracture is again demonstrated Impression: Postoperative changes, no unusual features
--- NOTE | 2020-11-06 16:17 | Diagnostic Imaging Report ---
INDICATION: Pain, intraoperative TECHNIQUE: Intraoperative imaging Fluoroscopy time: 73 seconds Total dose: 0.4463 mGym2 Total number of images: 9 COMPARISON: 11/04/2020 FINDINGS: Intraoperative images document surgical repair of previously demonstrated tibial fracture. IMPRESSION: Intraoperative imaging, as described
--- NOTE | 2020-11-06 16:44 | Operative Note - Dictated ---
DATE OF OPERATION: 11/06/2020 PREOPERATIVE DIAGNOSES: 1. Right spiral distal third tibial fracture with displacement, closed. 2. Right proximal fibular spiral fracture with some mild displacement, closed. POSTOPERATIVE DIAGNOSES: 1. Right spiral distal third tibial fracture with displacement, closed. 2. Right proximal fibular spiral fracture with some mild displacement, closed. PROCEDURE: Open reduction, internal fixation of the right tibia using Union 10 mm diameter x 33 cm nail with a 10 mm end cap and 2 proximal and 2 distal screw fixation. SURGEON: Edvin Anne M.D. ELECTRONIC HEAT SEAL OPERATOR: Nicole Allen ANESTHESIOLOGIST: John Ferguson M.D. ANESTHESIA: General LMA anesthesia. EBL: Less than 150 mL. COMPLICATIONS: None. BRIEF HISTORY: The patient is a pleasant 40-year-old gentleman who sustained a twisting injury to his right tibia playing soccer. He had spiral fracture of the right tibia and a proximal fibular spiral fracture. After full discussion of risks and benefits of the surgery and complications associated with it including infection, bleeding, neurovascular complication, possibility of continued pain, possibility of continued instability, possible need for further surgery, possible other complications that may arise including nonunion, malunion, need for dynamization of the nail, need for further surgery including exchange nailing as well as other complications that may arise from infection and need for further surgery, he opted for surgical treatment as described above. OPERATIVE PROCEDURE: The patient was brought to the operating table and was placed supine. All pressure points were well padded. General LMA anesthesia was induced and the patient was placed on a Jorje table. The right leg was prepped and draped in usual sterile fashion. The patient had previous retrograde nailing of the femur and there was a scar over the anterior aspect of the patella in the infrapatellar region over the patellar tendon. Therefore, the same incision was used. The incision was taken through the subcutaneous tissue. The patellar tendon was incised in line with its fibers and was retracted medial and laterally. The entry hole into the tibia was identified. The knee was hyperflexed and using an awl, entry into the tibia was obtained. Subsequently, a curved guidewire was passed and the awl was removed. The curved guidewire was then passed using closed technique and image intensifier, and the guidewire went across the fracture site and the central portion of the distal tibia just above the ankle joint. At this point, a proximal opening reamer was used and subsequently reaming was performed from size [address] up to size 11.5 mm. This provided excellent chatter across the cortex. At this point, measurements were made and 33 cm nail appeared to be the right size. The 33 cm nail was then placed in and using closed reduction technique, the nail was passed across the fracture site and was seated distally on the tibia just above the mortise. Once this was seated, the fracture alignment was checked and appeared to be anatomical. The rotation was checked and appeared to be anatomical. At this point, an bifynona-ei-vryxafmgx screw was placed on the ankle through the tibia into the nail. A 37.5 mm screw was placed in. Subsequently, the nail was then tapped retrograde to compress the fracture site. Once this was completed, 2 proximal screws, 1 locking from medial to lateral and 1 dynamic from lateral to medial, were placed in without any complications. Once this was completed, a 10 mm end cap was placed on the tibia to extend the length of the nail to provide ease of removal of the nail if it becomes necessary. At this point, a distal interlocking screw was placed from medial to lateral using image intensifier. The screws were measured and checked on AP and lateral and appeared to be excellent. There was excellent stability that was obtained. At this point, all wounds were thoroughly irrigated. The patellar tendon was closed using #1 Vicryl suture. Subcutaneous tissue was closed using 2-0 Vicryl suture. Skin was closed with 3-0 Monocryl suture. Steri-Strips were applied and sterile dressing was applied. The patient tolerated the procedure well without any complications and taken to the recovery room in a stable condition. All lap counts and instrument counts were correct. Edvin Anne M.D. DR: FRANTZ JOB#: [id number] CC:
[2020-11-06] MEDS: D5 1/2NS 1,000 ML IV SCH (16:58)
[2020-11-06] MEDS: Docusate 100mg cap ORAL SCH (17:03)
--- NOTE | 2020-11-06 17:35 | NUR ---
NURSE NOTES:tolerated regular diet,voided,no c/o pain.
--- NOTE | 2020-11-06 19:05 | NUR ---
NURSE NOTES: Received report from GRICELDA Johnson. Pt is awake and in no distress. Call light within reach, bed in lowest position, patient is eating and drinking well. Will continue to monitor.
--- NOTE | 2020-11-06 19:05 | NUR ---
HAND-OFF: Report given to GERARDO Knox RN,WALKING ROUNDS DONE.
[2020-11-06] MEDS: oxyCONTIN 10mg tab ORAL SCH (20:31)
[2020-11-06] MEDS: ceFAZolin sod 1 GM in D5W 55 ML IV SCH (20:31)
[2020-11-07] VITALS: BP 138/72
[2020-11-07] MEDS: D5 1/2NS 1,000 ML IV SCH ×2 (01:00→13:16)
[2020-11-07 04:00] VITALS: BP 124/72
[2020-11-07] MEDS: ceFAZolin sod 1 GM in D5W 55 ML IV SCH ×2 (04:10→13:15)
[2020-11-07 06:10] LABS: BASOPHILS % (AUTO) 0.8 % (0.0-2.0); EOSINOPHILS % (AUTO) 5.9 % (0.0-3.0); HEMATOCRIT 29.5 % (42.0-52.0); HEMOGLOBIN 10.1 G/DL (14.2-18.0); LYMPHOCYTES % (AUTO) 12.9 % (20.0-45.0); MEAN CORPUSCULAR VOLUME 96 FL (80-99); MONOCYTES % (AUTO) 8.2 % (1.0-10.0); NEUTROPHILS % (AUTO) 72.2 % (45.0-75.0); PLATELET COUNT 253 K/UL (150-450); RED BLOOD COUNT 3.08 M/UL (4.70-6.10); RED CELL DISTRIBUTION WIDTH 14.4 % (11.6-14.8); WHITE BLOOD COUNT 8.7 K/UL (4.8-10.8)
[2020-11-07 06:39] LABS: ALANINE AMINOTRANSFERASE 30 U/L (12-78); ALBUMIN 2.8 G/DL (3.4-5.0); ALBUMIN/GLOBULIN RATIO 0.8 (1.0-2.7); ALKALINE PHOSPHATASE 91 U/L (46-116); ANION GAP 5 mmol/L (5-15); ASPARTATE AMINO TRANSFERASE 30 U/L (15-37); BILIRUBIN,TOTAL 0.4 MG/DL (0.2-1.0); BLOOD UREA NITROGEN 9 mg/dL (7-18); CALCIUM 8.4 MG/DL (8.5-10.1); CARBON DIOXIDE 31 MMOL/L (21-32); CHLORIDE 100 MMOL/L (98-107); CREATININE 0.7 MG/DL (0.55-1.30); SODIUM 135 MMOL/L (136-145)
--- NOTE | 2020-11-07 07:10 | NUR ---
NURSE HAND-OFF: Important Events on Shift: None Patient Status: calm Diet: regular Pending Orders: Pending Results/Labs: Pending MD notification: Latest Vital Signs: Temperature 98.6 , Pulse 79 , B/P 124 /72 , Respiratory Rate 18 , O2 SAT 97 , Nasal Cannula, O2 Flow Rate 3 . Vital Sign Comment: VSS Latest Gomez Fall Score: 60 Fall Risk: High Risk Safety Measures: Call light Within Reach, Bed Alarm Zone 1, Side Rails Side Rails x2, Bed position Low and Locked. Fall Precautions: Yellow Socks Yellow Gown Report given to GRICELDA Sprague.
[2020-11-07 08:00] VITALS: BP 135/80
--- NOTE | 2020-11-07 08:00 | NUR ---
NURSE NOTES: RECIEVED PT. IN BED AWAKE AND ALERT WATCHING TV AND EATING BREAKFAST W/ GOOD APPETITE. S/P RIGHT TIBIA ORIF.ABLE TO WIGGLE TOES W/ SLIGHT SWELLING NOTED.CALL LIGHT WITHIN REACH @ ALL TIMES.WILL CONTINUE W/ POC.
--- NOTE | 2020-11-07 08:30 | Orthopedic Progress Note ---
Orthopedic - Progress Note Subjective Symptoms: improved Objective Laboratory Tests Test 11/07/20 05:10 White Blood Count 8.7 K/UL (4.8-10.8) Red Blood Count 3.08 M/UL (4.70-6.10) L Hemoglobin 10.1 G/DL (14.2-18.0) L Hematocrit 29.5 % (42.0-52.0) L Mean Corpuscular Volume 96 FL (80-99) Mean Corpuscular Hemoglobin 32.9 PG (27.0-31.0) H Mean Corpuscular Hemoglobin Concent 34.4 G/DL (32.0-36.0) Red Cell Distribution Width 14.4 % (11.6-14.8) Platelet Count 253 K/UL (150-450) Mean Platelet Volume 5.4 FL (6.5-10.1) L Neutrophils (%) (Auto) 72.2 % (45.0-75.0) Lymphocytes (%) (Auto) 12.9 % (20.0-45.0) L Monocytes (%) (Auto) 8.2 % (1.0-10.0) Eosinophils (%) (Auto) 5.9 % (0.0-3.0) H Basophils (%) (Auto) 0.8 % (0.0-2.0) Sodium Level 135 MMOL/L (136-145) L Potassium Level 4.0 MMOL/L (3.5-5.1) Chloride Level 100 MMOL/L (98-107) Carbon Dioxide Level 31 MMOL/L (21-32) Anion Gap 5 mmol/L (5-15) Blood Urea Nitrogen 9 mg/dL (7-18) Creatinine 0.7 MG/DL (0.55-1.30) Estimat Glomerular Filtration Rate > 60 mL/min (>60) Glucose Level 109 MG/DL (74-106) H Calcium Level 8.4 MG/DL (8.5-10.1) L Phosphorus Level 4.0 MG/DL (2.5-4.9) Magnesium Level 1.8 MG/DL (1.8-2.4) Total Bilirubin 0.4 MG/DL (0.2-1.0) Aspartate Amino Transf (AST/SGOT) 30 U/L (15-37) Alanine Aminotransferase (ALT/SGPT) 30 U/L (12-78) Alkaline Phosphatase 91 U/L (46-116) Total Protein 6.2 G/DL (6.4-8.2) L Albumin 2.8 G/DL (3.4-5.0) L Globulin 3.4 g/dL Albumin/Globulin Ratio 0.8 (1.0-2.7) L Last 24 Hour Vital Signs Date Time Temp Pulse Resp B/P (MAP) Pulse Ox O2 Delivery O2 Flow Rate FiO2 11/07/20 05:51 98.6 11/07/20 04:00 98.6 79 18 124/72 (89) 97 11/07/20 00:00 99.4 80 18 138/72 (94) 97 11/06/20 21:00 Room Air 11/06/20 20:00 99.0 83 18 108/64 (79) 98 11/06/20 16:00 98.4 85 18 120/75 (90) 97 11/06/20 15:35 97.8 87 16 120/82 100 Nasal Cannula 3 11/06/20 15:30 82 14 120/85 100 Nasal Cannula 3 11/06/20 15:15 87 16 112/85 100 Nasal Cannula 3 11/06/20 15:00 94 18 126/89 100 Simple Mask 6 11/06/20 14:50 81 19 123/82 100 Simple Mask 6 11/06/20 14:40 89 18 112/80 100 Simple Mask 6 11/06/20 14:39 86 22 99 11/06/20 14:35 83 16 124/74 100 Simple Mask 6 11/06/20 14:30 98.3 100 24 119/73 100 Simple Mask 6 11/06/20 11:51 98.4 73 18 127/81 (96) 98 Intake and Output 11/06/20 11/07/20 19:00 07:00 Intake Total 2500 ml 700 ml Output Total 1900 ml 2250 ml Balance 600 ml -1550 ml Intake Oral 1000 ml 700 ml IV Total 1500 ml Output Urine Total 1800 ml 2250 ml Estimated Blood Loss 100 ml Laboratory Tests Test 11/07/20 05:10 White Blood Count 8.7 K/UL (4.8-10.8) Red Blood Count 3.08 M/UL (4.70-6.10) L Hemoglobin 10.1 G/DL (14.2-18.0) L Hematocrit 29.5 % (42.0-52.0) L Mean Corpuscular Volume 96 FL (80-99) Mean Corpuscular Hemoglobin 32.9 PG (27.0-31.0) H Mean Corpuscular Hemoglobin Concent 34.4 G/DL (32.0-36.0) Red Cell Distribution Width 14.4 % (11.6-14.8) Platelet Count 253 K/UL (150-450) Mean Platelet Volume 5.4 FL (6.5-10.1) L Neutrophils (%) (Auto) 72.2 % (45.0-75.0) Lymphocytes (%) (Auto) 12.9 % (20.0-45.0) L Monocytes (%) (Auto) 8.2 % (1.0-10.0) Eosinophils (%) (Auto) 5.9 % (0.0-3.0) H Basophils (%) (Auto) 0.8 % (0.0-2.0) Sodium Level 135 MMOL/L (136-145) L Potassium Level 4.0 MMOL/L (3.5-5.1) Chloride Level 100 MMOL/L (98-107) Carbon Dioxide Level 31 MMOL/L (21-32) Anion Gap 5 mmol/L (5-15) Blood Urea Nitrogen 9 mg/dL (7-18) Creatinine 0.7 MG/DL (0.55-1.30) Estimat Glomerular Filtration Rate > 60 mL/min (>60) Glucose Level 109 MG/DL (74-106) H Calcium Level 8.4 MG/DL (8.5-10.1) L Phosphorus Level 4.0 MG/DL (2.5-4.9) Magnesium Level 1.8 MG/DL (1.8-2.4) Total Bilirubin 0.4 MG/DL (0.2-1.0) Aspartate Amino Transf (AST/SGOT) 30 U/L (15-37) Alanine Aminotransferase (ALT/SGPT) 30 U/L (12-78) Alkaline Phosphatase 91 U/L (46-116) Total Protein 6.2 G/DL (6.4-8.2) L Albumin 2.8 G/DL (3.4-5.0) L Globulin 3.4 g/dL Albumin/Globulin Ratio 0.8 (1.0-2.7) L Assessment Post-op Diagnosis POD 1 Procedure Performed right tibial ORIF Plan Plan: PT, discharge plan Pati Allen Nov 07, 2020 08:30
[2020-11-07] MEDS: celeBREX 200mg Cap **SURGERY PATIENTS ONLY ORAL SCH (09:02)
[2020-11-07] MEDS: Docusate 100mg cap ORAL SCH ×3 (09:02→18:20)
[2020-11-07] MEDS: oxyCONTIN 10mg tab ORAL SCH ×2 (09:03→20:25)
--- NOTE | 2020-11-07 11:41 | Surgery Progress Note ---
Surgery Progress Note Subjective Additional Comments s/p Open reduction, internal fixation of the right tibia using Sandi 10 mm diameter x 33 cm nail with a 10 mm end cap and 2 proximal and 2 distal screw fixation. recovering pain control Objective Last 24 Hour Vital Signs Date Time Temp Pulse Resp B/P (MAP) Pulse Ox O2 Delivery O2 Flow Rate FiO2 11/07/20 05:51 98.6 11/07/20 04:00 98.6 79 18 124/72 (89) 97 11/07/20 00:00 99.4 80 18 138/72 (94) 97 11/06/20 21:00 Room Air 11/06/20 20:00 99.0 83 18 108/64 (79) 98 11/06/20 16:00 98.4 85 18 120/75 (90) 97 11/06/20 15:35 97.8 87 16 120/82 100 Nasal Cannula 3 11/06/20 15:30 82 14 120/85 100 Nasal Cannula 3 11/06/20 15:15 87 16 112/85 100 Nasal Cannula 3 11/06/20 15:00 94 18 126/89 100 Simple Mask 6 11/06/20 14:50 81 19 123/82 100 Simple Mask 6 11/06/20 14:40 89 18 112/80 100 Simple Mask 6 11/06/20 14:39 86 22 99 11/06/20 14:35 83 16 124/74 100 Simple Mask 6 11/06/20 14:30 98.3 100 24 119/73 100 Simple Mask 6 11/06/20 11:51 98.4 73 18 127/81 (96) 98 I&O Intake and Output 11/06/20 11/07/20 19:00 07:00 Intake Total 2500 ml 700 ml Output Total 1900 ml 2250 ml Balance 600 ml -1550 ml Intake Oral 1000 ml 700 ml IV Total 1500 ml Output Urine Total 1800 ml 2250 ml Estimated Blood Loss 100 ml Dressing: dry Cardiovascular: RSR Respiratory: clear Abdomen: soft, non-tender, present bowel sounds Extremities: edema, no tenderness, no cyanosis Laboratory Tests Test 11/07/20 05:10 White Blood Count 8.7 K/UL (4.8-10.8) Red Blood Count 3.08 M/UL (4.70-6.10) L Hemoglobin 10.1 G/DL (14.2-18.0) L Hematocrit 29.5 % (42.0-52.0) L Mean Corpuscular Volume 96 FL (80-99) Mean Corpuscular Hemoglobin 32.9 PG (27.0-31.0) H Mean Corpuscular Hemoglobin Concent 34.4 G/DL (32.0-36.0) Red Cell Distribution Width 14.4 % (11.6-14.8) Platelet Count 253 K/UL (150-450) Mean Platelet Volume 5.4 FL (6.5-10.1) L Neutrophils (%) (Auto) 72.2 % (45.0-75.0) Lymphocytes (%) (Auto) 12.9 % (20.0-45.0) L Monocytes (%) (Auto) 8.2 % (1.0-10.0) Eosinophils (%) (Auto) 5.9 % (0.0-3.0) H Basophils (%) (Auto) 0.8 % (0.0-2.0) Sodium Level 135 MMOL/L (136-145) L Potassium Level 4.0 MMOL/L (3.5-5.1) Chloride Level 100 MMOL/L (98-107) Carbon Dioxide Level 31 MMOL/L (21-32) Anion Gap 5 mmol/L (5-15) Blood Urea Nitrogen 9 mg/dL (7-18) Creatinine 0.7 MG/DL (0.55-1.30) Estimat Glomerular Filtration Rate > 60 mL/min (>60) Glucose Level 109 MG/DL (74-106) H Calcium Level 8.4 MG/DL (8.5-10.1) L Phosphorus Level 4.0 MG/DL (2.5-4.9) Magnesium Level 1.8 MG/DL (1.8-2.4) Total Bilirubin 0.4 MG/DL (0.2-1.0) Aspartate Amino Transf (AST/SGOT) 30 U/L (15-37) Alanine Aminotransferase (ALT/SGPT) 30 U/L (12-78) Alkaline Phosphatase 91 U/L (46-116) Total Protein 6.2 G/DL (6.4-8.2) L Albumin 2.8 G/DL (3.4-5.0) L Globulin 3.4 g/dL Albumin/Globulin Ratio 0.8 (1.0-2.7) L Plan Problems: (1) Alcohol intoxication (2) Closed fracture of right tibia and fibula Assessment & Plan: Closed fx noted no LOC etoh + ortho input noted OR today see operative note will need pt/ot post op pain control no head injury no other trauma isolated ortho thank you There is a spiral fracture of the distal tibial diaphysis. This is displaced laterally by one bone width, very slightly impacted. A few tiny intervening fracture fragments are demonstrated. There is also a spiral fracture of the proximal fibular diaphysis, likewise displaced by one bone width. Surgical hardware is seen in the distal femur s/p Open reduction, internal fixation of the right tibia using [employer] 10 mm diameter x 33 cm nail with a 10 mm end cap and 2 proximal and 2 distal screw fixation. Wesley Teixeira Nov 07, 2020 11:41
[2020-11-07 12:00] VITALS: BP 130/70
--- NOTE | 2020-11-07 13:27 | Internal Med Progress Note ---
Subjective Physician Name Ran New Attending Physician Ran New M.D. Current Medications Medications (Trade) Dose Ordered Sig/Chris Route PRN Reason Start Time Stop Time Status Last Admin Dose Admin Acetaminophen (Tylenol) 650 mg Q6H PRN ORAL Mild Pain (Pain Scale 1-3) 11/04/20 23:45 12/04/20 23:44 Acetaminophen (Tylenol) 650 mg Q6H PRN ORAL fever 11/06/20 12:00 12/06/20 11:59 Acetaminophen/ Hydrocodone Bitart ([place] 5/325) 1 tab Q4H PRN ORAL For Pain 11/06/20 12:00 11/13/20 11:59 11/07/20 05:21 Aspirin (ASA) 325 mg BID ORAL 11/07/20 09:00 12/22/20 08:59 11/07/20 08:59 Cefazolin Sodium 1 gm/Dextrose 55 ml @ 110 mls/hr Q8H IV 11/06/20 21:00 11/07/20 13:29 11/07/20 13:15 Celecoxib (CeleBREX) 200 mg DAILY ORAL 11/07/20 09:00 02/05/21 08:59 11/07/20 09:02 Dextrose/Sodium Chloride 1,000 ml @ 75 mls/hr Q13H IV 11/06/20 12:00 12/06/20 11:59 11/07/20 13:16 Docusate Sodium (Colace) 100 mg THREE TIMES A DAY ORAL 11/06/20 18:00 12/06/20 17:59 11/07/20 13:16 Hydromorphone HCl (Dilaudid) 0.5 mg Q4H PRN SUBQ Mild Pain (Pain Scale 1-3) 11/06/20 12:00 11/13/20 11:59 Hydromorphone HCl (Dilaudid) 1 mg Q3H PRN SUBQ Moderate Pain (Pain Scale 4-6) 11/06/20 12:00 11/13/20 11:59 Lorazepam (Ativan) 1 mg Q2H PRN ORAL Agitation 11/04/20 23:45 11/11/20 23:44 Ondansetron HCl (Zofran) 4 mg Q6H PRN IVP Nausea & Vomiting 11/06/20 12:00 12/06/20 11:59 Oxycodone HCl (OxyCONTIN) 10 mg EVERY 12 HOURS ORAL 11/06/20 21:00 11/13/20 20:59 11/07/20 09:03 Pantoprazole (Protonix) 40 mg EVERY 12 HOURS ORAL 11/06/20 21:00 12/06/20 20:59 11/07/20 09:03 Allergies: Coded Allergies: No Known Allergies (Unverified , 11/04/20) ROS Limited/Unobtainable: No Constitutional: Reports: weakness HEENT: Denies: no symptoms, eye pain, blurred vision, tearing, double vision, ear pain, ear discharge, nose pain, nose congestion, throat pain, throat swelling, mouth pain, mouth swelling, other Cardiovascular: Denies: no symptoms, chest pain, edema, irregular heart rate, lightheadedness, palpitations, syncope, other Respiratory: Denies: no symptoms, cough, orthopnea, shortness of breath, SOB with excertion, SOB at rest, sputum, stridor, wheezing, other Gastrointestinal/Abdominal: Denies: no symptoms, abdomen distended, abdominal pain, black stools, tarry stools, blood in stool, constipated, diarrhea, difficu lty swallowing, nausea, poor appetite, poor fluid intake, rectal bleeding, vomiting, other Genitourinary: Denies: no symptoms, burning, discharge, frequency, flank pain, hematuria, incontinence, pain, urgency, other Neurologic/Psychiatric: Denies: no symptoms, anxiety, depressed, emotional problems, headache, numbness, paresthesia, pre-existing deficit, seizure, tingling, tremors, weakness, other All Systems: reviewed and negative except above Subjective s/p Open reduction, internal fixation of the right tibia using [place] 10 mm diameter x 33 cm nail with a 10 mm end cap and 2 proximal and 2 distal screw fixation. Objective Last Vital Signs Date Time Temp Pulse Resp B/P (MAP) Pulse Ox O2 Delivery O2 Flow Rate FiO2 11/07/20 05:51 98.6 11/07/20 04:00 79 18 124/72 (89) 97 11/06/20 21:00 Room Air 11/06/20 15:35 3 Laboratory Tests Test 11/07/20 05:10 White Blood Count 8.7 K/UL (4.8-10.8) Red Blood Count 3.08 M/UL (4.70-6.10) L Hemoglobin 10.1 G/DL (14.2-18.0) L Hematocrit 29.5 % (42.0-52.0) L Mean Corpuscular Volume 96 FL (80-99) Mean Corpuscular Hemoglobin 32.9 PG (27.0-31.0) H Mean Corpuscular Hemoglobin Concent 34.4 G/DL (32.0-36.0) Red Cell Distribution Width 14.4 % (11.6-14.8) Platelet Count 253 K/UL (150-450) Mean Platelet Volume 5.4 FL (6.5-10.1) L Neutrophils (%) (Auto) 72.2 % (45.0-75.0) Lymphocytes (%) (Auto) 12.9 % (20.0-45.0) L Monocytes (%) (Auto) 8.2 % (1.0-10.0) Eosinophils (%) (Auto) 5.9 % (0.0-3.0) H Basophils (%) (Auto) 0.8 % (0.0-2.0) Sodium Level 135 MMOL/L (136-145) L Potassium Level 4.0 MMOL/L (3.5-5.1) Chloride Level 100 MMOL/L (98-107) Carbon Dioxide Level 31 MMOL/L (21-32) Anion Gap 5 mmol/L (5-15) Blood Urea Nitrogen 9 mg/dL (7-18) Creatinine 0.7 MG/DL (0.55-1.30) Estimat Glomerular Filtration Rate > 60 mL/min (>60) Glucose Level 109 MG/DL (74-106) H Calcium Level 8.4 MG/DL (8.5-10.1) L Phosphorus Level 4.0 MG/DL (2.5-4.9) Magnesium Level 1.8 MG/DL (1.8-2.4) Total Bilirubin 0.4 MG/DL (0.2-1.0) Aspartate Amino Transf (AST/SGOT) 30 U/L (15-37) Alanine Aminotransferase (ALT/SGPT) 30 U/L (12-78) Alkaline Phosphatase 91 U/L (46-116) Total Protein 6.2 G/DL (6.4-8.2) L Albumin 2.8 G/DL (3.4-5.0) L Globulin 3.4 g/dL Albumin/Globulin Ratio 0.8 (1.0-2.7) L Microbiology Date/Time Source Procedure Growth Status 11/04/20 23:45 Rectum - Final NO CARBAPENEM-RESISTANT ENTEROBACTERI... Complete 11/04/20 23:45 Rectum VRE Culture - Final NO VANCOMYCIN RESISTANT ENTEROCOCCUS ... Complete 11/04/20 23:45 Nasal Nares MRSA Culture - Final NO METHICILLIN RESISTANT STAPH AUREUS... Complete 11/04/20 16:00 Nasopharynx SARS-CoV-2 RdRp Gene Assay - Final Complete l Intake and Output 11/06/20 11/07/20 19:00 07:00 Intake Total 2500 ml 700 ml Output Total 1900 ml 2250 ml Balance 600 ml -1550 ml Intake Oral 1000 ml 700 ml IV Total 1500 ml Output Urine Total 1800 ml 2250 ml Estimated Blood Loss 100 ml Assessment/Plan Assessment/Plan #Right displaced spiral fracture of the distal tibia requiring surgery. - s/p Open reduction, internal fixation of the right tibia using Sandi 10 mm diameter x 33 cm nail with a 10 mm end cap and 2 proximal and 2 distal screw fixation. - pain control - DVT ppx - PT Ran New M.D. Nov 07, 2020 13:27
[2020-11-07 16:00] VITALS: BP 140/71
[2020-11-07] MEDS ORDERED: D5NS 1000ml IV ONE (17:04)
[2020-11-07] MEDS ORDERED: D5 1/2NS 1000ml IV ONE (17:04)
--- NOTE | 2020-11-07 19:28 | NUR ---
HAND-OFF: Report given to MALIA MADISON.
--- NOTE | 2020-11-07 19:35 | NUR ---
NURSE NOTES: received pt and report from GRICELDA Sprague. pt alert and oriented x 4, no acute ss of distress and no co pain at the moment. IV site clean dry and intact and running fluids as ordered. surgical dressing clean dry and intact. R foot swollen but can move ankle and toes and cap refill <3 seconds on toes. R leg elevated on 2 pillows. plan of care discussed.
[2020-11-07 20:00] VITALS: BP 132/71
[2020-11-08] VITALS: BP 114/70
--- NOTE | 2020-11-08 00:05 | NUR ---
NURSE NOTES: pt vital signs stable. pt sleeping with no acute ss of distress. no co pain. R foot still swollen but pt is able to wiggle toes and move ankle. he denies tingling sensation. cap refill on toes < 3 sec.
[2020-11-08] MEDS: D5 1/2NS 1,000 ML IV SCH ×2 (02:00→17:19)
[2020-11-08 03:59] VITALS: BP 113/75
--- NOTE | 2020-11-08 03:59 | NUR ---
NURSE NOTES: pt sleeping prior to vital signs check. no acute ss of distress noted and no co pain at the moment. vital signs are stable. R leg remains elevated on 2 pillows.
--- NOTE | 2020-11-08 07:20 | NUR ---
NURSE HAND-OFF: Important Events on Shift:pain management, neurovascular status post op R leg Patient Status: stable Diet: regular Pending Orders: na Pending Results/Labs:na Pending MD notification:na Latest Vital Signs: Temperature 98.1 , Pulse 80 , B/P 113 /75 , Respiratory Rate 17 , O2 SAT 99 , Nasal Cannula, O2 Flow Rate 3 . Vital Sign Comment: stable through the shift Latest Gomez Fall Score: 60 Fall Risk: High Risk Safety Measures: Call light Within Reach, Bed Alarm Zone 1, Side Rails Side Rails x2, Bed position Low and Locked. Fall Precautions: Yellow Socks Report given to GRICELDA Ba.
--- NOTE | 2020-11-08 07:55 | NUR ---
NURSE NOTES: RECIEVED PT. AWAKE AND ALERT EATING BREAKFASTW/ GOOD APPETITE.NO C/O PAIN @ THIS TIME.CALL LIGHT WITHIN REACH,INSTRUCTED TO CALL FOR ANY ASSISTANCE VERBALIZES UNDERSTANDING.WILL CONTINUE W/ POC.
[2020-11-08 08:00] VITALS: BP 108/66
[2020-11-08] MEDS: Docusate 100mg cap ORAL SCH ×3 (08:39→17:17)
[2020-11-08] MEDS: celeBREX 200mg Cap **SURGERY PATIENTS ONLY ORAL SCH (08:41)
[2020-11-08] MEDS: oxyCONTIN 10mg tab ORAL SCH ×2 (08:42→20:50)
--- NOTE | 2020-11-08 08:42 | Orthopedic Progress Note ---
Orthopedic - Progress Note Objective Last 24 Hour Vital Signs Date Time Temp Pulse Resp B/P (MAP) Pulse Ox O2 Delivery O2 Flow Rate FiO2 11/08/20 03:59 98.1 80 17 113/75 (88) 99 11/08/20 00:00 98.0 70 15 114/70 (85) 99 11/07/20 21:00 Room Air 11/07/20 20:00 98.8 84 16 132/71 (91) 98 11/07/20 16:00 98.0 67 18 140/71 (94) 95 11/07/20 12:00 97.2 70 20 130/70 (90) 97 11/07/20 09:00 Room Air Intake and Output 11/07/20 11/08/20 19:00 07:00 Intake Total 1400 ml 750 ml Output Total 2000 ml 2000 ml Balance -600 ml -1250 ml Intake Oral 500 ml IV Total 900 ml 750 ml Output Urine Total 2000 ml 2000 ml # Voids 3 Assessment Post-op Diagnosis POD 2 Procedure Performed right tibial ORIF Plan Plan: discharge plan - Will need social contact worker assistance Pati Allen Nov 08, 2020 08:42
--- NOTE | 2020-11-08 08:45 | NUR ---
PT EVALUATION NOTE Patient seen for initial evaluation and treatment initiated. Patient presents with impaired functional mobility s/p ORIF R tibia/fibula fracture. Patient requires min assist for bed mobility to assist with lifting RLE in/OOB. Sit to stand with CGA and crutches. Patient able to ambulate 125 ft with CGA and crutches. Patient will benefit from skilled inpatient PT intervention to increase independence and stability with functional mobility with crutches and WB precautions. Discharge disposition to be determined. Recommend crutches for transfers and ambulation. Addendum: 11/08/20 at 1003 by STEFANI LAZCANO PT Amended: Links added.
[2020-11-08 12:00] VITALS: BP 118/64
--- NOTE | 2020-11-08 12:36 | Internal Med Progress Note ---
Subjective Physician Name Ran New Attending Physician Ran New M.D. Current Medications Medications (Trade) Dose Ordered Sig/Chris Route PRN Reason Start Time Stop Time Status Last Admin Dose Admin Acetaminophen (Tylenol) 650 mg Q6H PRN ORAL Mild Pain (Pain Scale 1-3) 11/04/20 23:45 12/04/20 23:44 Acetaminophen (Tylenol) 650 mg Q6H PRN ORAL fever 11/06/20 12:00 12/06/20 11:59 Acetaminophen/ Hydrocodone Bitart ([place] 5/325) 1 tab Q4H PRN ORAL For Pain 11/06/20 12:00 11/13/20 11:59 11/07/20 05:21 Aspirin (ASA) 325 mg BID ORAL 11/07/20 09:00 12/22/20 08:59 11/08/20 08:40 Celecoxib (CeleBREX) 200 mg DAILY ORAL 11/07/20 09:00 02/05/21 08:59 11/08/20 08:41 Dextrose/Sodium Chloride 1,000 ml @ 75 mls/hr Q13H IV 11/06/20 12:00 12/06/20 11:59 11/08/20 02:00 Docusate Sodium (Colace) 100 mg THREE TIMES A DAY ORAL 11/06/20 18:00 12/06/20 17:59 11/08/20 08:39 Hydromorphone HCl (Dilaudid) 0.5 mg Q4H PRN SUBQ Mild Pain (Pain Scale 1-3) 11/06/20 12:00 11/13/20 11:59 Hydromorphone HCl (Dilaudid) 1 mg Q3H PRN SUBQ Moderate Pain (Pain Scale 4-6) 11/06/20 12:00 11/13/20 11:59 Lorazepam (Ativan) 1 mg Q2H PRN ORAL Agitation 11/04/20 23:45 11/11/20 23:44 Ondansetron HCl (Zofran) 4 mg Q6H PRN IVP Nausea & Vomiting 11/06/20 12:00 12/06/20 11:59 Oxycodone HCl (OxyCONTIN) 10 mg EVERY 12 HOURS ORAL 11/06/20 21:00 11/13/20 20:59 11/08/20 08:42 Pantoprazole (Protonix) 40 mg EVERY 12 HOURS ORAL 11/06/20 21:00 12/06/20 20:59 11/08/20 08:40 Allergies: Coded Allergies: No Known Allergies (Unverified , 11/04/20) ROS Limited/Unobtainable: No Constitutional: Reports: weakness HEENT: Denies: no symptoms, eye pain, blurred vision, tearing, double vision, ear pain, ear discharge, nose pain, nose congestion, throat pain, throat swelling, mouth pain, mouth swelling, other Cardiovascular: Denies: no symptoms, chest pain, edema, irregular heart rate, lightheadedness, palpitations, syncope, other Respiratory: Denies: no symptoms, cough, orthopnea, shortness of breath, SOB with excertion, SOB at rest, sputum, stridor, wheezing, other Gastrointestinal/Abdominal: Denies: no symptoms, abdomen distended, abdominal pain, black stools, tarry stools, blood in stool, constipated, diarrhea, difficulty swallowing, nausea, poor appetite, poor fluid intake, rectal bleeding, vomiting, other Genitourinary: Denies: no symptoms, burning, discharge, frequency, flank pain, hematuria, incontinence, pain, urgency, other Neurologic/Psychiatric: Denies: no symptoms, anxiety, depressed, emotional problems, headache, numbness, paresthesia, pre-existing deficit, seizure, tingling, tremors, weakness, other Subjective s/p Open reduction, internal fixation of the right tibia using Sandi 10 mm diameter x 33 cm nail with a 10 mm end cap and 2 proximal and 2 distal screw fixation. Objective Last Vital Signs Date Time Temp Pulse Resp B/P (MAP) Pulse Ox O2 Delivery O2 Flow Rate FiO2 11/08/20 12:00 98.6 70 18 118/64 (82) 97 11/08/20 09:00 Room Air 11/06/20 15:35 3 Intake and Output 11/07/20 11/08/20 19:00 07:00 Intake Total 1400 ml 825 ml Output Total 2000 ml 2000 ml Balance -600 ml -1175 ml Intake Oral 500 ml IV Total 900 ml 825 ml Output Urine Total 2000 ml 2000 ml # Voids 3 Assessment/Plan Assessment/Plan #Right displaced spiral fracture of the distal tibia requiring surgery. - s/p Open reduction, internal fixation of the right tibia using Sandi 10 mm diameter x 33 cm nail with a 10 mm end cap and 2 proximal and 2 distal screw fixation. - pain control - DVT ppx - PT Ran New M.D. Nov 08, 2020 12:36
[2020-11-08] MEDS ORDERED: D5 1/2NS 1000ml IV ONE (12:57)
--- NOTE | 2020-11-08 13:58 | Surgery Progress Note ---
Surgery Progress Note Subjective Symptoms: improved, tolerating diet, voiding well, passing flatus, BM, pain decreased Objective Last 24 Hour Vital Signs Date Time Temp Pulse Resp B/P (MAP) Pulse Ox O2 Delivery O2 Flow Rate FiO2 11/08/20 12:00 98.6 70 18 118/64 (82) 97 11/08/20 09:00 Room Air 11/08/20 08:00 99.2 76 18 108/66 (80) 98 11/08/20 03:59 98.1 80 17 113/75 (88) 99 11/08/20 00:00 98.0 70 15 114/70 (85) 99 11/07/20 21:00 Room Air 11/07/20 20:00 98.8 84 16 132/71 (91) 98 11/07/20 16:00 98.0 67 18 140/71 (94) 95 I&O Intake and Output 11/07/20 11/08/20 19:00 07:00 Intake Total 1400 ml 825 ml Output Total 2000 ml 2000 ml Balance -600 ml -1175 ml Intake Oral 500 ml IV Total 900 ml 825 ml Output Urine Total 2000 ml 2000 ml # Voids 3 Dressing: dry Wound: clean Cardiovascular: RSR Respiratory: clear Abdomen: soft, flat, non-tender, present bowel sounds, non-distended Extremities: no edema, no tenderness, no cyanosis, pulses Plan Problems: (1) Alcohol intoxication (2) Closed fracture of right tibia and fibula Assessment & Plan: Closed fx noted no LOC etoh + ortho input noted OR today see operative note will need pt/ot post op pain control no head injury no other trauma isolated ortho thank you There is a spiral fracture of the distal tibial diaphysis. This is displaced laterally by one bone width, very slightly impacted. A few tiny intervening fracture fragments are demonstrated. There is also a spiral fracture of the proximal fibular diaphysis, likewise displaced by one bone width. Surgical hardware is seen in the distal femur s/p Open reduction, internal fixation of the right tibia using Sandi 10 mm diameter x 33 cm nail with a 10 mm end cap and 2 proximal and 2 distal screw fixation. Wesley Teixeira Nov 08, 2020 13:58
[2020-11-08 16:00] VITALS: BP 124/70
--- NOTE | 2020-11-08 19:20 | NUR ---
NURSE NOTES: Pt resting in bed watching TV, AAOX4, alva wrap dressing intact to RLE s/p right tibia ORIF, elevated on pillows. swelling and bruising to right foot but moves and wiggles toes well and sensation present, SCD to LLE. denies pain at this time. requesting for snacks/juice; otherwise, no further needs noted at this time. call light within easy reach.
--- NOTE | 2020-11-08 19:26 | NUR ---
HAND-OFF: Report given to LANCE MADISON.
[2020-11-08 20:00] VITALS: BP 110/63
[2020-11-09] VITALS: BP 110/68
[2020-11-09 04:00] VITALS: BP 132/79
[2020-11-09] MEDS: D5 1/2NS 1,000 ML IV SCH (05:17)
--- NOTE | 2020-11-09 07:25 | NUR ---
HAND-OFF: Report given to GRICELDA Johnson. Bedside reporting.
[2020-11-09 08:00] VITALS: BP 146/76
--- NOTE | 2020-11-09 08:12 | Orthopedic Progress Note ---
Orthopedic - Progress Note Subjective Symptoms: improved Objective Last 24 Hour Vital Signs Date Time Temp Pulse Resp B/P (MAP) Pulse Ox O2 Delivery O2 Flow Rate FiO2 11/09/20 08:00 Room Air 11/09/20 08:00 97.6 66 18 146/76 (99) 97 11/09/20 04:00 98.2 75 18 132/79 (96) 97 11/09/20 00:00 98.4 87 16 110/68 (82) 97 11/08/20 21:00 Room Air 11/08/20 20:00 99.1 74 16 110/63 (79) 98 11/08/20 16:00 97.8 72 18 124/70 (88) 98 11/08/20 12:00 98.6 70 18 118/64 (82) 97 11/08/20 09:00 Room Air Intake and Output 11/08/20 11/09/20 19:00 07:00 Intake Total 1675 ml 1025 ml Output Total 1200 ml 1700 ml Balance 475 ml -675 ml Intake Oral 1000 ml 500 ml IV Total 675 ml 525 ml Output Urine Total 1200 ml 1700 ml # Voids 3 2 # Bowel Movements 1 1 Wound: clean, dry, intact Drains: none Neuro Status: normal Vascular Status: normal Additional Comments xray reviewed Assessment Post-op Diagnosis POD 3 Procedure Performed right tibial ORIF Plan Plan: discharge plan - case hardener and social media sr strategy manager involved. PT rec rehab. stable for d/c per ortho Pati Allen Nov 09, 2020 08:12
[2020-11-09] MEDS: Docusate 100mg cap ORAL SCH ×2 (08:19→13:03)
[2020-11-09] MEDS: celeBREX 200mg Cap **SURGERY PATIENTS ONLY ORAL SCH (08:20)
[2020-11-09] MEDS: oxyCONTIN 10mg tab ORAL SCH (08:21)
--- NOTE | 2020-11-09 09:30 | NUR ---
NURSE NOTES:AMBULATED WITH PHYSICAL THERAPY USING CRUTCHES,TOLERATED ACTIVITY WELL.
[2020-11-09 12:00] VITALS: BP 103/66
[2020-11-09] MEDS ORDERED: LR 1000ml ONE (12:00)
[2020-11-09] MEDS ORDERED: Sterile Water Irrig 1000ml IRRIG ONE (12:00)
--- NOTE | 2020-11-09 12:44 | NUR ---
RECORDS MANAGEMENT ANALYST NOTE S/W GREEK SPEAKING ONLY PATIENT AT BEDSIDE IN RE TO DISCHARGE. PATIENT STATED HE WAS UNAWARE OF DC. CONFIRMED THAT HE IS CURRENTLY HOMELESS BUT DOES HAVE A FRIEND WITH WHOM HE MAY BE ABLE TO STAY WITH TEMPORARILY. STATED HIS FRIEND WORKS AT [employer] BUT DOES NOT HAVE THE NUMBER. CM SEARCHED INFO AND PROVIDED PATIENT WITH PHONE NUMBER TO [employer]. WILL FOLLOW UP WITH PATIENT IN RE TO DC PLAN. GRICELDA ROQUE AWARE.
[2020-11-09 16:00] VITALS: BP 130/71
--- NOTE | 2020-11-09 16:18 | NUR ---
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 PT reports he will dc own resource to preferred location. SW explained negative ramification of unlicensed facilities/self-directing. Pt verbalized understanding. Pt accepted the community resource packet including emergency [facility] list. SW provided the copy of COVID result in case if pt plans to go to a homeless chcf. Pt has appropriate clothing. Pt does not have further social service concern.
--- NOTE | 2020-11-09 16:20 | NUR ---
NURSE NOTES:seen by lyndsey mitchell(mental health social worker)see above notes,d/c instructions given with understanding,with dme(crutches) on discharge.belongings list signed and confirmed with pt.
[2020-11-09] MEDS ORDERED: D5 1/2NS 1000ml IV ONE (17:19)
--- NOTE | 2020-11-09 19:12 | Surgery Progress Note ---
Surgery Progress Note Subjective Symptoms: improved, tolerating diet, voiding well, pain decreased Objective Last 24 Hour Vital Signs Date Time Temp Pulse Resp B/P (MAP) Pulse Ox O2 Delivery O2 Flow Rate FiO2 11/09/20 16:00 97.9 86 18 130/71 (90) 99 11/09/20 12:00 98.4 71 18 103/66 (78) 98 11/09/20 08:00 Room Air 11/09/20 08:00 97.6 66 18 146/76 (99) 97 11/09/20 04:00 98.2 75 18 132/79 (96) 97 11/09/20 00:00 98.4 87 16 110/68 (82) 97 11/08/20 21:00 Room Air 11/08/20 20:00 99.1 74 16 110/63 (79) 98 I&O Intake and Output 11/08/20 11/09/20 19:00 07:00 Intake Total 1675 ml 1025 ml Output Total 1200 ml 1700 ml Balance 475 ml -675 ml Intake Oral 1000 ml 500 ml IV Total 675 ml 525 ml Output Urine Total 1200 ml 1700 ml # Voids 3 2 # Bowel Movements 1 1 Dressing: dry Wound: clean Cardiovascular: RSR Respiratory: clear Abdomen: soft, flat, non-tender, present bowel sounds Extremities: no tenderness, no cyanosis Plan Problems: (1) Alcohol intoxication (2) Closed fracture of right tibia and fibula Assessment & Plan: Closed fx noted no LOC etoh + ortho input noted OR today see operative note will need pt/ot post op pain control no head injury no other trauma isolated ortho thank you There is a spiral fracture of the distal tibial diaphysis. This is displaced laterally by one bone width, very slightly impacted. A few tiny intervening fracture fragments are demonstrated. There is also a spiral fracture of the proximal fibular diaphysis, likewise displaced by one bone width. Surgical hardware is seen in the distal femur s/p Open reduction, internal fixation of the right tibia using Sandi 10 mm diameter x 33 cm nail with a 10 mm end cap and 2 proximal and 2 distal screw fixation. late entry plan d/c today much better ready to go Wesley Teixeira Nov 09, 2020 19:12
--- NOTE | 2020-11-10 11:42 | Discharge Summary ---
Discharge Summary Discharge Summary _ DATE OF ADMISSION: 11/04/2020 DATE OF DISCHARGE: 11/09/2020 DISCHARGED BY: Dr. New REASON FOR ADMISSION: 40 years homeless old male with no significant past medical history, presented with right lower extremity pain. Patient apparently was playing soccer when he tripped and landed improperly on his feet. Pain reported as 10 out of 10, worse with ambulation. Obvious deformity was noted by paramedics. Patient admitted to prior drinking alcohol . Upon evaluation vital signs reveal elevated blood pressure 161/84 . laboratory work-up revealed no leukocytosis, hemoglobin 12.3 ,hematocrit 38.4, platelet count 332. INR 0.9 .. table electrolytes and renal parameters. Glucose 96. AST 45 , ALT 43 . Serum alcohol level 184 . Rapid COVID-19 was negative. X-ray of the left tibia and fibula revealed tibial and fibular fracture. Patient was placed in a splint by emergency room physician. Patient received analgesic , IV hydration and admitted for further management. CONSULTANTS: Orthopedic surgeon Dr. [facility] surgery Dr. Teixeira [facility] COURSE: Patient admitted to medical surgical floor . Pain management was addressed. Orthopedic surgeon seen and evaluated patient . Patient subsequently undergone open reduction internal fixation of the right tibia fracture Postoperative course of recovery was uneventful. Pain management was addressed. Patient was working with physical therapist. Fall precautions maintained. Incentive spirometer encouraged while in the bed . Weightbearing maintained as per orthopedic surgeon recommendations. Patient was counseled on abstinence from ETOH. Physical therapist recommended transfer to rehabilitation facility. Patient declined rehab facility. Patient met with social worker aide and accepted the community resource packet , including emergency fci list. The treating physician and consultants assessed patient and all agreed , that patient was medically stable for discharge to an outpatient disposition. FINAL DIAGNOSES: Right spiral distal third tibial fracture with displacement, closed Right proximal fibular spiral fracture with some mild displacement, closed Alcohol intoxication Status post open reduction internal fixation right tibia DISCHARGE MEDICATIONS: See Medication Reconciliation list. DISCHARGE INSTRUCTIONS: Patient was discharged to outpatient disposition. Patient to follow-up with a surgeon as advised I have been assigned to dictate discharge summary for this account. I was not involved in the patient's management. Belkys Henao NP Nov 10, 2020 11:42
== END 2020-11-09 17:20 | disposition home or self-care (01) | DRG 313 ==
LOC: EDBD 13:55 → EMR 15:38 → 3E 16:17 → EDBEDREQ 21:03 → 3E 11-05 01:53
PROC: 0QSG04Z Reposition Right Tibia with Internal Fixation Device, Open Approach (ICD-10-PCS; principal; 2020-11-06 12:00)
DX: S82.831A Other fracture of upper and lower end of right fibula, initial encounter for closed fracture (principal); W18.49XA Other slipping, tripping and stumbling without falling, initial encounter; Y93.66 Activity, soccer; Y92.414 Local residential or business street as the place of occurrence of the external cause; Z59.0 Homelessness; F10.129 Alcohol abuse with intoxication, unspecified
CPT/HCPCS: 29505; 36415; 76000; 80053; 83735; 84100; 85025; 85610; 85730; 87081; 94003; 94150; 96374; 96376; 99285; G0480; J2250; U0002